=== PATIENT | male | born 1940 | race Caucasian/White ===

== ENCOUNTER 2017-08-20 22:38 | Inpatient (IN) ==
[2017-08-21] MEDS ORDERED: Naloxone 0.4 MG/ML INJ IVP PRN ×3 (04:28→04:42)
[2017-08-21] MEDS ORDERED: Sod Borate/Boric acid/NaCl 118 ML IRRIG.SOLN OP ONE ×2 (04:48→20:53)
--- NOTE | 2017-08-21 04:58 | Internal Med History&Physical ---
Date of Encounter: 08/21/17 Time of Encounter: 03:00 Internal Medicine - H&P: HPI Chief complaint: Weakness, los of appetite, history of AML Admitted From: Hospital to Hospital Transfer Plans for Post Hospital Care: Home History of present illness: Mr. Saxena is a 76 year old male Patient has history of AML, and has been on chemotherapy for the last several weeks. He is to start another round of chemotherapy on 08/22/2017. He states that for the past few days he has had low energy, no appetite, has not been eating, or drinking. Prior to this he had not had issues with appetite. He saw his oncologist recently and he was started on Marinol to help with his appetite however it has not had an effect yet. He was admitted for failure to thrive. Patient also states that 2 nights ago he accidentally scratched his right eye. In the ER prior to being transferred to [facility], this was evaluated and an ointment was applied. It is causing him some pain. Patient also had a stroke this past February, and he was found to have atrial fibrillation. He is currently not taking anything for his atrial fibrillation. Past Med Surg Social Fam HX - Past Medical History Medical history: asthma, COPD, hyperlipidemia, hypertension, myocardial infarction, RA Additional medical history: Irreg Heart-Beat. Emphysema. Kidney Failure. Cataracts. Anemia Psychiatric history: anxiety, depression - Past Surgical History Surgical History: appendectomy, coronary bypass (CABG) Additional surgical history: PLIF L4-L5 - Social History Smoking Status: Former smoker Smokeless Tobacco Status: No Alcohol use: none Drug use: none Internal Medicine - H&P: Meds Escitalopram [Lexapro] 20 mg PO HS 06/27/15 [History] Finasteride [Proscar] 5 mg PO DAILY 06/27/15 [History] Omeprazole [PriLOSEC] 40 mg PO DAILY 06/27/15 [History] amLODIPine [Norvasc] 5 mg PO DAILY 09/24/16 [History] Ipratropium/Albuterol Neb [Duoneb] 3 ml IH BID PRN 10/19/16 [History] Allopurinol [Zyloprim 300 MG] 300 mg PO DAILY 04/08/17 [History] Atorvastatin Calcium [Lipitor] 80 mg PO DAILY 04/08/17 [History] Oxycodone HCl [Oxycontin] 10 mg PO Q4H PRN 04/08/17 [History] Terazosin [Hytrin] 1 mg PO HS 04/08/17 [History] Prochlorperazine Maleate [Compazine] 10 mg PO Q8HR PRN #60 tablet 04/25/17 [Rx] Magic Mouthwash [Magic Mouthwash BLM] 10 ml PO QID PRN #240 ml 06/07/17 [Rx] Docusate Sodium [Stool Softener] 100 mg PO DAILY #30 capsule 06/20/17 [Rx] Sennosides [Senokot] 1 tab PO DAILY PRN #30 tablet 06/20/17 [Rx] Polyethylene Glycol 3350 [MiraLAX] 17 gm PO DAILY #3 powd.pack 06/28/17 [Rx] Citalopram Hydrobromide [Celexa] 20 mg PO DAILY #30 tab 07/18/17 [Rx] Megestrol Acetate [Megace] 800 mg PO DAILY #400 udc 07/18/17 [Rx] OxyCODONE Immed Rel [Roxicodone 5 MG] 5 mg PO BID PRN 30 Days #60 tablet [Rx] Zolpidem [Ambien] 10 mg PO HS 30 Days #30 tablet 08/03/17 [Rx] Dronabinol [Marinol] 2.5 mg PO DAILY 30 Days #30 capsule 08/11/17 [Rx] Doxycycline 100 mg PO BID #30 capsule 08/16/17 [Rx] 3 Allergy/AdvReac Type Severity Reaction Status Date / Time No Known Allergies Allergy Verified 08/11/17 09:29 All Systems PM: A 10-system review of systems was performed and is negative for pertinent findings except as documented above in the HPI. - EENT Eyes: irritation, pain - Constitutional Vitals: Temp Pulse Resp BP Pulse Ox 98.5 F 72 18 121/67 99 08/21/17 04:30 08/21/17 04:30 08/21/17 04:30 08/21/17 04:30 08/21/17 04:30 General appearance: Present: A&O X 3, no acute distress, underweight, answers questions appropriately - Head Head exam: Present: atraumatic - Eye Eye exam: Present: EOMI (Right eyes sclera is red) - ENT ENT exam: Present: normal external ear exam - Respiratory Respiratory exam: Present: CTAB. Absent: accessory muscle use, chest wall tenderness, wheezes - Cardiovascular Cardiovascular exam: Present: irregular rhythm. Absent: tachycardia - GI/Abdominal GI/Abdominal exam: Present: normal bowel sounds, soft. Absent: tenderness - Extremities Exam Extremities exam: Present: warm, radial pulses palpable and symmetrical. Absent : cyanotic - Neurological Exam Neurological exam: Present: oriented X3, no focal deficits. Absent: facial droop, speech deficit - Psychiatric Psychiatric exam: Present: normal affect - Skin Skin exam: Present: diaphoretic, intact, normal color. Absent: rash - Assessment and plan (1) Acute myeloid leukemia Current Visit: No Status: Acute Assessment and plan: Chronic condition, patient has been receiving chemotherapy for this for some time now. Is seeing an oncologist at this time. He is to start another round of chemotherapy on August 22. This condition is likely that cause of his other presenting problems including weakness and loss of appetite and failure to thrive. Continue with current plan as per oncology Oncology has been notified of the patient being in the hospital. Qualifiers: Qualified Code(s): C92.00 - Acute myeloblastic leukemia, not having achieved remission (2) Abrasion of right eye Current Visit: Yes Status: Acute Assessment and plan: Patient accidentally scratched his right eye one night ago. Is causing him some discomfort at this time. Give eye irrigation solution. Consider ophthalmology consult if not improving Consider antibiotics if not improving. Qualifiers: Qualified Code(s): S05.8X1A - Other injuries of right eye and orbit, initial encounter (3) Failure to thrive in adult Current Visit: Yes Status: Acute Assessment and plan: Patient has history of AML, and for the past week has not been eating or drinking very much. He has had low energy as well. Physical therapy consultation to help patient build strength and give him exercises for him to try. Occupational therapy consultation to help patient with movement and transfers. Nutrition consult to help patient get on a sufficient diet, which will help build his strength. (4) Leucopenia Current Visit: No Status: Chronic Assessment and plan: Likely secondary to AML, treating as above. Qualifiers: Leukopenia type: neutropenia Qualified Code(s): D70.1 - Agranulocytosis secondary to cancer chemotherapy; T45.1X5A - Adverse effect of antineoplastic and immunosuppressive drugs, initial encounter (5) Anemia Current Visit: Yes Status: Chronic Assessment and plan: Likely secondary to his AML and chemotherapy treatments. Patient's iron levels are within normal limits, and his B12 levels are also not below. Continue to treat AML as above. Monitor with repeat laboratory work. Qualifiers: Anemia type: other cause Other causes of anemia: antineoplastic chemotherapy Qualified Code(s): D64.81 - Anemia due to antineoplastic chemotherapy; T45.1X5A - Adverse effect of antineoplastic and immunosuppressive drugs, initial encounter (6) Urinary tract infection Current Visit: Yes Status: Acute Assessment and plan: Suspected due to patient's urine sample given. Has elevated leukocytic esterase , but also many epithelial cells which could indicate contamination. No bacteria was seen either. Cultures were indicated. Patient denied pain with urination. Patient's vitals otherwise normal do not suspect infection at this time. Follow-up urine cultures Consider treating with ceftriaxone 1 g if indicated. Qualifiers: Qualified Code(s): N39.0 - Urinary tract infection, site not specified (7) Lethargy Current Visit: Yes Status: Acute Assessment and plan: Secondary to AML, low hydration and nutrition status. PT,OT consult Nutrition consult. - Time Spent With Patient Total time spent is greater than 50% in coordination of care (as documented) at patient's floor/unit and/or counseling patient: Greater than 35 minutes
[2017-08-21] MEDS ORDERED: 0.9 % Sodium Chloride 1,000 ML IVC ONE (05:19)
[2017-08-21] MEDS: *HR* Heparin 5,000 UNIT/ML VIAL SQ SCH ×2 (05:45→19:28)
--- NOTE | 2017-08-21 08:22 | Oncology Inp Consult Note ---
Date of Encounter: 08/21/17 Time of Encounter: 09:00 Assessment and Plan (1) Acute myeloid leukemia Status: Acute Assessment and plan: Diagnosed with a bone marrow biopsy at [facility], patient did not want to participate in any clinical trials, he started decitabine treatment since April 2017, initially tolerated it well. He his treatment has been delayed due to increasing weakness and poor quality of life, requiring periodic transfusions. Patient has not agreed for hospice but wants to feel better and able to eat well. Will continue supportive transfusions. He currently does not need any PRBC or platelet transfusion his platelets are within normal limits. Restart up pain medications as patient was taking outside at home, oxycodone 5 mg as needed, I have started his Megace as patient developed drowsiness with Marinol. Panculture if patient develops a fever, he was taking outpatient doxycycline prophylaxis. Currently denies any signs and symptoms of fever. Physical therapy, occupational therapy. Nutrition evaluation. Attempted to communicate plan with his , but she was unable to be reached at home/lyn. Plan d/w patient bedside Qualifiers: Leukemia Active/Remission status: without remission Qualified Code(s): C92.00 - Acute myeloblastic leukemia, not having achieved remission - Data of Consult Requesting Physician: Kiko Gutierrez MD Primary Care Provider: Jose Ocampo CNP - Consult Narrative Reason for consult: AML History of present illness: Mr. Saxena is a 76-year-old male with medical history significant for hypertension, A fib, CAD, rt hip arthroplasty 03/24, chronic kidney disease, hypo -PD colonoscopy back in 2014 for iron def anemia--Rx in clinic with mild leukopenia, had a fall and Rx at [facility] for rt clavicle fracture and rt hip hemiarthroplasty--03/24. LAbs showed abnormalities including presence of blasts-- peripheral flow consistent with AML. Echo with EF-55-60% also shows moderate dilatation of the ascending aorta.This measures 4.3cm . A BM bx at [facility]--Acute myeloid leukemia (30-40% blasts) involving a hypercellular marrow (70-80%), preserved trilineage hematopoiesis with erythroid hyperplasia, megakaryocytic hyperplasia, and mild trilineage dysplasia, see comment. 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 PT preferred to take Rx locally due to distance from [facility]> Started decitabine cycle 1 in April 2017 tolerated well. He had received monthly course of decitabine, developed weakness, with occasional fall, poor appetite had tried Megace recently Marinol, due to poor oral intake and failure to thrive he was transferred from [facility]. His last blood transfusion was in the beginning of the month. His platelet counts have stabilized. He is still leukopenic does not report any fever or infection symptoms. He denies any diarrhea or cough with expectoration. He has generally pain from arthritis, Ac myeloid leukemia which has been under control with pain medications. Past Med Surg Social Fam HX - Past Medical History Medical history: asthma, COPD, hyperlipidemia, hypertension, myocardial infarction, RA Additional medical history: Irreg Heart-Beat. Emphysema. Kidney Failure. Cataracts. Anemia Psychiatric history: anxiety, depression - Past Surgical History Surgical History: appendectomy, coronary bypass (CABG) Additional surgical history: PLIF L4-L5 - Social History Smoking Status: Former smoker Smokeless Tobacco Status: No Alcohol use: none Drug use: none Medications and Allergies Escitalopram [Lexapro] 20 mg PO HS 06/27/15 [History] Finasteride [Proscar] 5 mg PO DAILY 06/27/15 [History] Omeprazole [PriLOSEC] 40 mg PO DAILY 06/27/15 [History] Allopurinol [Zyloprim 300 MG] 300 mg PO DAILY 04/08/17 [History] Atorvastatin Calcium [Lipitor] 80 mg PO DAILY 04/08/17 [History] Oxycodone HCl [Oxycontin] 10 mg PO Q4H PRN 04/08/17 [History] Terazosin [Hytrin] 1 mg PO HS 04/08/17 [History] Prochlorperazine Maleate [Compazine] 10 mg PO Q8HR PRN #60 tablet 04/25/17 [Rx] Magic Mouthwash [Magic Mouthwash BLM] 10 ml PO QID PRN #240 ml 06/07/17 [Rx] Docusate Sodium [Stool Softener] 100 mg PO DAILY #30 capsule 06/20/17 [Rx] Sennosides [Senokot] 1 tab PO DAILY PRN #30 tablet 06/20/17 [Rx] Polyethylene Glycol 3350 [MiraLAX] 17 gm PO DAILY #3 powd.pack 06/28/17 [Rx] Citalopram Hydrobromide [Celexa] 20 mg PO DAILY #30 tab 07/18/17 [Rx] Megestrol Acetate [Megace] 800 mg PO DAILY #400 udc 07/18/17 [Rx] OxyCODONE Immed Rel [Roxicodone 5 MG] 5 mg PO BID PRN 30 Days #60 tablet [Rx] Zolpidem [Ambien] 10 mg PO HS 30 Days #30 tablet 08/03/17 [Rx] Dronabinol [Marinol] 2.5 mg PO DAILY 30 Days #30 capsule 08/11/17 [Rx] Doxycycline 100 mg PO BID #30 capsule 08/16/17 [Rx] 3 Allergy/AdvReac Type Severity Reaction Status Date / Time No Known Allergies Allergy Verified 08/11/17 09:29 Review of systems: as in HPI Oncology - Exam - Constitutional Vitals: Temp Pulse Resp BP Pulse Ox 98.6 F 97 18 127/76 97 08/21/17 07:22 08/21/17 07:22 08/21/17 07:22 08/21/17 07:22 08/21/17 07:22 General appearance: no acute distress - Head Head exam: Present: atraumatic, normal inspection - Eye Eye exam: Present: sclera anicteric - ENT ENT exam: Present: mucous membranes dry, mucous membranes moist - Neck Neck exam: Present: full ROM - Respiratory Respiratory exam: Present: CTAB - Cardiovascular Cardiovascular exam: Present: irregular rhythm, +S1, +S2 - GI/Abdominal GI/Abdominal exam: Present: normal bowel sounds, soft - Extremities Exam Extremities exam: Present: normal inspection - Neurological Exam Neurological exam: Present: alert, CN II-XII intact, oriented X3 - Psychiatric Psychiatric exam: Present: normal affect Consult Discharge Plan - Plan Referrals: Jose Ocampo CNP [Primary Care Provider] -
[2017-08-21 08:41] LABS: Red Cell Distribution Width 20.2 % (11.5-14.5)
[2017-08-21 08:42] LABS: Hematocrit 24.5 % (37.5-50.1); Hemoglobin 7.9 g/dL (12.9-16.9); Mean Corpuscular HGB Conc 32.2 g/dL (31.6-35.5); Mean Corpuscular Hemoglobin 30.7 pg (28.0-33.3); Mean Corpuscular Volume 95.3 fL (83.0-100.0); Mean Platelet Volume 10.9 fL (9.4-12.4); Platelet Count 316 K/mcL (140-400); Red Blood Count 2.57 M/mcL (4.19-5.50)
[2017-08-21 08:57] LABS: Alanine Aminotransferase 8 Units/L (7-52); Albumin 3.2 g/dL (3.5-5.7); Albumin/Globulin Ratio 1.1 (1.1-2.2); Alkaline Phosphatase 70 Units/L (34-104); Aspartate Amino Transferase 9 Units/L (13-39); BUN/Creatinine Ratio 14 (6-26); Bilirubin,Total 0.5 mg/dL (0.3-1.0); Blood Urea Nitrogen 16 mg/dL (8-23); Calcium 8.6 mg/dL (8.6-10.3); Carbon Dioxide 18 mEq/L (23-29); Chloride 112 mEq/L (98-107); Globulin 2.9 g/dL (2.4-3.5); Glucose 106 mg/dL (70-105); Magnesium 1.8 mg/dL (1.6-2.6); Osmolality,Calculated 288 (280-300); Phosphorous 3.9 mg/dL (2.7-4.5); Potassium 3.4 mEq/L (3.5-5.1); Sodium 138 mEq/L (136-145); Total Protein 6.1 g/dL (6.4-8.9); eGFR For African Americans > 60 (> 60); eGFR For Non-African Americans > 60 (> 60)
[2017-08-21] MEDS: Megestrol Acetate 400 MG/10 ML UDC PO SCH ×2 (09:46→15:01)
[2017-08-21] MEDS ORDERED: Magic Mouthwash 10 ML UD Cup PO PRN (14:09)
[2017-08-21] MEDS ORDERED: Ipratropium/Albuterol Neb 3 ML IH PRN (14:09)
--- NOTE | 2017-08-21 14:18 | Internal Med Progress Note ---
Date of Encounter: 08/21/17 Time of Encounter: 13:16 - Assessment and plan (1) Leucopenia Current Visit: No Status: Chronic Qualifiers: Leukopenia type: neutropenia Qualified Code(s): D70.1 - Agranulocytosis secondary to cancer chemotherapy; T45.1X5A - Adverse effect of antineoplastic and immunosuppressive drugs, initial encounter (2) Hypokalemia Current Visit: Yes Status: Acute (3) Failure to thrive in adult Current Visit: No Status: Acute (4) Acute myeloid leukemia Current Visit: No Status: Acute Qualifiers: Leukemia Active/Remission status: without remission Qualified Code(s): C92.00 - Acute myeloblastic leukemia, not having achieved remission - Time Spent With Patient Plan Counseling patient about nutrition, add appetite stimulant, discontinue ambien add remeron to help him an appetite stimulant as well as to help him to sleep. Neutropenic precaution. Appreciate oncology input. Vital signs every 4 hours. Replaced potassium check magnesium and phosphorus. Resume home medication. Total time spent is greater than 50% in coordination of care (as documented) at patient's floor/unit and/or counseling patient: 25 - 35 minutes - Subjective Interval history: Patient complaining of generalized weakness tiredness, patient denies any fever or chills, patient denies any dysuria or hematuria, denies any change in his bowel movement, denies any sore throat. Patient complaining of decreased appetite he did not eat for the last 3 days - Constitutional Vitals: Temp Pulse Resp BP Pulse Ox 98.6 F 88 17 168/69 99 08/21/17 11:38 08/21/17 11:38 08/21/17 11:38 08/21/17 11:38 08/21/17 11:38 General appearance: Present: A&O X 3, no acute distress, underweight, answers questions appropriately - Head Head exam: Present: atraumatic, normocephalic - Neck Neck exam general surgery: Present: supple, trachea midline. Absent: lymphadenopathy - Cardiovascular Cardiovascular exam: Present: RRR, +S1, +S2. Absent: diastolic murmur, gallop, rubs, systolic murmur - GI/Abdominal GI/Abdominal exam: Present: normal bowel sounds, soft, no peritoneal signs. Absent: distended, tenderness - Extremities Exam Extremities exam: Present: warm, radial pulses palpable and symmetrical. Absent : calf tenderness, cyanotic, pedal edema - Neurological Exam Neurological exam: Present: CN II-XII intact, oriented X3, no focal deficits. Absent: pronater drift, facial droop, speech deficit - Skin Skin exam: Present: dry, intact Internal Medicine: Result - Labs CBC & Chem 7: 08/21/17 08:13 08/21/17 08:13 Labs: Short CBC 08/21/17 Range/Units 08:13 WBC 0.6 L* (4.3-11.1) K/mcL Hgb 7.9 L (12.9-16.9) g/dL Hct 24.5 L (37.5-50.1) % Plt Count 316 (140-400) K/mcL BMP 08/21/17 08:13 Sodium 138 Potassium 3.4 L Chloride 112 H Carbon Dioxide 18 L BUN 16 Creatinine 1.14 Glucose 106 H Calcium 8.6 Liver Function 08/21/17 Range/Units 08:13 Total Bilirubin 0.5 (0.3-1.0) mg/dL AST 9 L (13-39) Units/L ALT 8 (7-52) Units/L Alkaline Phosphatase 70 (34-104) Units/L Albumin 3.2 L (3.5-5.7) g/dL Consult Discharge Plan - Plan Referrals: Jose Ocampo CNP [Primary Care Provider] -
[2017-08-21] MEDS ORDERED: Thiamine (B-1) 100 MG in D5% in Water 50 ML IVPB ONE (14:27)
[2017-08-21] MEDS: Sennosides 8.6 MG TABLET PO PRN (15:38)
[2017-08-21] MEDS: amLODIPine 5 MG TABLET PO SCH (15:38)
[2017-08-21] MEDS: *HR* OxyCODONE Immed Rel 5 MG TABLET PO PRN (15:38)
[2017-08-21] MEDS: Thiamine (B-1) 100 MG TABLET PO SCH (15:38)
[2017-08-21] MEDS: Finasteride 5 MG TABLET PO SCH (15:39)
[2017-08-21] MEDS: Levofloxacin 500 MG/100 ML 500 MG/100 ML BAG IVPB SCH (17:00)
[2017-08-21] MEDS ORDERED: Mirtazapine 15 MG TABLET PO SCH (21:00)
[2017-08-21] MEDS: Melatonin 3 MG TABLET PO PRN (21:32)
[2017-08-22] MEDS: *HR* Heparin 5,000 UNIT/ML VIAL SQ SCH ×2 (06:10→17:02)
[2017-08-22 07:30] LABS: Mean Platelet Volume 10.8 fL (9.4-12.4)
[2017-08-22 07:32] LABS: Eosinophils % 4.4 %; Hematocrit 23.7 % (37.5-50.1); Hemoglobin 7.8 g/dL (12.9-16.9); Immature Granulocytes % 2.9 % (0-4); Lymphocytes # 0.5 K/mcL (0.6-4.6); Lymphocytes % 73.5 %; Mean Corpuscular HGB Conc 32.9 g/dL (31.6-35.5); Mean Corpuscular Hemoglobin 31.2 pg (28.0-33.3); Mean Corpuscular Volume 94.8 fL (83.0-100.0); Monocytes % 2.9 %; Neutrophils # 0.1 K/mcL (1.6-8.9); Nucleated Red Blood Cells 4.4 /100 WBC (0); Platelet Count 339 K/mcL (140-400); Red Cell Distribution Width 20.4 % (11.5-14.5); Segmented Neutrophils % 16.3 %
[2017-08-22 07:53] LABS: % Iron Saturation 21 % (20-55); BUN/Creatinine Ratio 14 (6-26); Blood Urea Nitrogen 15 mg/dL (8-23); Calcium 8.9 mg/dL (8.6-10.3); Carbon Dioxide 19 mEq/L (23-29); Chloride 111 mEq/L (98-107); Glucose 96 mg/dL (70-105); Iron 35 mcg/dL (65-175); Magnesium 1.8 mg/dL (1.6-2.6); Osmolality,Calculated 289 (280-300); Phosphorous 3.8 mg/dL (2.7-4.5); Potassium 3.2 mEq/L (3.5-5.1); Sodium 139 mEq/L (136-145); Transferrin 118 mg/dL (203-362); eGFR For African Americans > 60 (> 60); eGFR For Non-African Americans > 60 (> 60)
[2017-08-22] MEDS: Finasteride 5 MG TABLET PO SCH (08:00)
[2017-08-22] MEDS: Megestrol Acetate 400 MG/10 ML UDC PO SCH ×2 (08:01→08:05)
[2017-08-22] MEDS: amLODIPine 5 MG TABLET PO SCH (08:01)
[2017-08-22] MEDS: Thiamine (B-1) 100 MG TABLET PO SCH (08:01)
[2017-08-22 08:12] LABS: Ferritin 826 ng/mL (20-250)
[2017-08-22 08:30] LABS: Anisocytosis 1+ (Not Present); Platelet Estimate Normal (Normal)
[2017-08-22] MEDS ORDERED: D5% in 0.45% NACL 1,000 ML IVC SCH (11:45)
[2017-08-22] MEDS ORDERED: Sennosides/Docusate Sodium TABLET PO ONE (11:47)
--- NOTE | 2017-08-22 11:59 | Internal Med Progress Note ---
Date of Encounter: 08/22/17 Time of Encounter: 11:55 - Assessment and plan (1) Leucopenia Current Visit: No Status: Chronic Qualifiers: Leukopenia type: neutropenia Qualified Code(s): D70.1 - Agranulocytosis secondary to cancer chemotherapy; T45.1X5A - Adverse effect of antineoplastic and immunosuppressive drugs, initial encounter (2) Hypokalemia Current Visit: Yes Status: Acute (3) Failure to thrive in adult Current Visit: No Status: Acute (4) Acute myeloid leukemia Current Visit: No Status: Acute Qualifiers: Leukemia Active/Remission status: without remission Qualified Code(s): C92.00 - Acute myeloblastic leukemia, not having achieved remission (5) Major depression Current Visit: Yes Status: Acute Qualifiers: Major depression recurrence: unspecified whether recurrent Active/ Remission status: currently active Major depression episode severity: moderate Qualified Code(s): F32.1 - Major depressive disorder, single episode , moderate (6) Lethargy Current Visit: No Status: Acute - Time Spent With Patient Plan Patient is clinically dry, will start patient on IV fluid, potassium replacement , phosphorus replacement, with his leukopenia continue neutropenic precaution continue prophylaxis with Levaquin. Borderline low iron and iron saturation may benefit from iron infusion, add BuSpar to help with supplementation of SSRI with his depression, change schedule of mirtazapine to 6 PM, close monitoring of H&H and his need to be neutrophils, patient is hospice stay more than 2 Midnight Total time spent is greater than 50% in coordination of care (as documented) at patient's floor/unit and/or counseling patient: 25 - 35 minutes - Subjective Interval history: Decrease oral intake of fluid, patient is so sleepy, based on family he was crying lately, he is feeling so depressed. He eats better today, no fever or chills overnight - Constitutional Vitals: Temp Pulse Resp BP Pulse Ox 99.2 F 95 17 108/64 98 08/22/17 10:58 08/22/17 10:58 08/22/17 10:58 08/22/17 10:58 08/22/17 10:58 General appearance: Present: cachectic, no acute distress, underweight, answers questions appropriately - Head Head exam: Present: atraumatic, normocephalic - Respiratory Respiratory exam: Present: CTAB. Absent: accessory muscle use, rales, rhonchi, wheezes - Cardiovascular Cardiovascular exam: Present: RRR, +S1, +S2. Absent: diastolic murmur, gallop, rubs, systolic murmur - GI/Abdominal GI/Abdominal exam: Present: normal bowel sounds, soft, no peritoneal signs. Absent: distended, tenderness - Extremities Exam Extremities exam: Present: warm, radial pulses palpable and symmetrical. Absent : calf tenderness, cyanotic, pedal edema Internal Medicine: Result - Labs CBC & Chem 7: 08/22/17 07:16 08/22/17 07:16 Labs: Short CBC 08/22/17 Range/Units 07:16 WBC 0.7 L* (4.3-11.1) K/mcL Hgb 7.8 L (12.9-16.9) g/dL Hct 23.7 L (37.5-50.1) % Plt Count 339 (140-400) K/mcL Neutrophils # 0.1 L (1.6-8.9) K/mcL BMP 08/22/17 07:16 Sodium 139 Potassium 3.2 L Chloride 111 H Carbon Dioxide 19 L BUN 15 Creatinine 1.04 Glucose 96 Calcium 8.9 Consult Discharge Plan - Plan Referrals: Jose Ocampo, ENVIRONMENTAL ADVISOR [Primary Care Provider] -
[2017-08-22] MEDS: Sennosides 8.6 MG TABLET PO PRN (14:26)
[2017-08-22] MEDS: D5% in 0.45% NACL w KCl 20 MEQ/1,000 ML MLS IVC SCH (14:26)
--- NOTE | 2017-08-22 14:59 | Oncology Inp Progress Note ---
Date of Encounter: 08/22/17 Time of Encounter: 14:00 (1) Acute myeloid leukemia Current Visit: No Status: Acute Assessment and plan: Diagnosed with a bone marrow biopsy at [facility], patient did not want to participate in any clinical trials, he started decitabine treatment since April 2017, initially tolerated it well. He has had treatment delays secondary to increasing weakness and poor quality of life, requiring periodic transfusions. Continue supportive management, PT/OT evals, nutrition eval. He currently does not need any PRBC or platelet transfusion his platelets are within normal limits. Severe neutropenia, he has been afebrile since admission. Reordered UA with culture. Panculture if patient develops a fever, he was taking outpatient doxycycline prophylaxis. He is drowsy but responds to voice, per he ate most of his lunch earlier. Stopped marinol, per Dr. Gómez note this has previously made his drowsy. May continue megace. Discussed plan with patients at bedside today. She is very realistic and understands treatment is of palliative intent. May need to consider palliative consult in future dependent upon his response to treatment, patients/family and improvement in functional status. At this time, continue with supportive management Qualifiers: Leukemia Active/Remission status: without remission Qualified Code(s): C92.00 - Acute myeloblastic leukemia, not having achieved remission Oncology: Subj Interval history: Mr. Saxena is resting comfortably, he denies pain. He is drowsy but responds to voice. He denies nausea, vomiting or diarrhea. His is at bedside. In speaking with patients , she states she has been concerned over his decline over the past few days, has had little intake prior to admission but she states he ate most of his lunch. - Constitutional Vitals: Vital Signs Temp Pulse Resp BP Pulse Ox 08/22/17 10:58 99.2 F 95 17 108/64 98 08/22/17 07:25 98.6 F 67 16 124/63 98 08/22/17 04:00 98.8 F 82 16 104/54 98 08/21/17 23:14 98.0 F 102 18 137/76 98 08/21/17 19:53 98.3 F 102 17 134/78 98 08/21/17 16:16 98.3 F 94 18 157/92 98 Intake and Output 08/21/17 08/22/17 08/22/17 23:59 07:59 15:59 Intake Total 126 / 126 0 / 0 600 / 600 Balance 126 / 126 0 / 0 600 / 600 Intake: IV Fluids 51 Vitamin B-1 100 MG In Dextrose 51 5% 50 ML @ 50 mls/hr IVPB ONCE ONE Rx#:[id number] Oral 65 / 65 0 / 0 600 / 600 Other 10 Other: Meal Dinner Lunch Percent of Meal Consumed 50% 70% # Voids 1 3 Weight 62.5 kg Patient Weight 08/22/17 23:59 Weight 62.5 kg General appearance: cooperative, no acute distress, thin, no febrile Exam: chronically ill appearing - Head Head exam: Present: atraumatic - ENT ENT exam: Present: mucous membranes moist - Respiratory Respiratory exam: Present: decreased breath sounds, CTAB. Absent: respiratory distress - Cardiovascular Cardiovascular exam: Present: RRR, +S1, +S2 - GI/Abdominal GI/Abdominal exam: Present: normal bowel sounds, soft. Absent: tenderness - Extremities Exam Extremities exam: Absent: calf tenderness - Neurological Exam Neurological exam: Present: alert, oriented X3, no focal deficits, strengths equal and symetr throughout Additional comments: Drowsy but responds to voice, follows commands - Psychiatric Psychiatric exam: Present: depressed, flat affect - Skin Skin exam: Present: dry, intact, normal color, warm Oncology: Obj Data - Labs CBC & Chem 7: 08/23/17 06:27 08/23/17 06:27 Labs: Laboratory Results - last 24 hr 08/22/17 08/22/17 08/22/17 07:16 07:16 07:16 WBC 0.7 L* RBC 2.50 L Hgb 7.8 L Hct 23.7 L MCV 94.8 MCH 31.2 MCHC 32.9 RDW 20.4 H Plt Count 339 MPV 10.8 Immature Gran % 2.9 Seg Neutrophils % 16.3 Lymphocytes % 73.5 Monocytes % 2.9 Eosinophils % 4.4 Basophils % 0.0 Neutrophils # 0.1 L Lymphocytes # 0.5 L Monocytes # 0.0 Eosinophils # 0.0 Basophils # 0.0 Nucleated RBCs/100 WBC 4.4 H Platelet Estimate Normal Anisocytosis 1+ A Sodium 139 Potassium 3.2 L Chloride 111 H Carbon Dioxide 19 L BUN 15 Creatinine 1.04 Est GFR ( Amer) > 60 Est GFR (Non-Af Amer) > 60 BUN/Creatinine Ratio 14 Glucose 96 Calculated Osmolality 289 Calcium 8.9 Phosphorus 3.8 Magnesium 1.8 Iron % Saturation Transferrin Ferritin Vitamin B12 696 08/22/17 07:16 WBC RBC Hgb Hct MCV MCH MCHC RDW Plt Count MPV Immature Gran % Seg Neutrophils % Lymphocytes % Monocytes % Eosinophils % Basophils % Neutrophils # Lymphocytes # Monocytes # Eosinophils # Basophils # Nucleated RBCs/100 WBC Platelet Estimate Anisocytosis Sodium Potassium Chloride Carbon Dioxide BUN Creatinine Est GFR ( Amer) Est GFR (Non-Af Amer) BUN/Creatinine Ratio Glucose Calculated Osmolality Calcium Phosphorus Magnesium Iron 35 L % Saturation 21 Transferrin 118 L Ferritin 826 H Vitamin B12 Consult Discharge Plan - Plan Referrals: Jose Ocampo CNP [Primary Care Provider] -
[2017-08-22] MEDS: Levofloxacin 500 MG/100 ML 500 MG/100 ML BAG IVPB SCH (16:15)
[2017-08-22] MEDS: Mirtazapine 15 MG TABLET PO SCH (17:02)
[2017-08-23] MEDS: D5% in 0.45% NACL w KCl 20 MEQ/1,000 ML MLS IVC SCH ×3 (01:45→21:59)
[2017-08-23 04:11] LABS: Bilirubin,Urine Negative (Negative); Blood,Urine Negative (Negative); Clarity,Urine Clear (Clear); Color,Urine Yellow (Yellow); Glucose,Urine (UA) Normal (Normal); Ketones,Urine Negative (Negative); Leukocyte Esterase,Urine Negative (Negative); Nitrite,Urine Negative (Negative); PH,Urine 6.5 pH Units (5.0-8.0); Protein,Urine 100 mg/dL (Neg-Trace); Specific Gravity,Urine 1.016 (1.010-1.025); Urobilinogen,Urine Normal (Normal)
[2017-08-23 04:13] LABS: Bacteria,Urine None Seen per hpf (None-Few); Hyaline Casts,Urine None Seen per lpf (None-Few); RBC,Urine 0-3 per hpf (0-3); Squamous Epithelial Cell,Urine Few per lpf (None-Few); WBC,Urine 0-3 per hpf (0-3)
[2017-08-23] MEDS: *HR* Heparin 5,000 UNIT/ML VIAL SQ SCH ×2 (06:00→17:05)
[2017-08-23 07:23] LABS: Lymphocytes # 0.4 K/mcL (0.6-4.6); Lymphocytes % 72.4 %; Monocytes % 3.4 %
[2017-08-23 07:24] LABS: Hematocrit 23.5 % (37.5-50.1); Hemoglobin 7.7 g/dL (12.9-16.9); Mean Corpuscular HGB Conc 32.8 g/dL (31.6-35.5); Mean Corpuscular Hemoglobin 31.2 pg (28.0-33.3); Mean Corpuscular Volume 95.1 fL (83.0-100.0); Platelet Count 301 K/mcL (140-400); Red Blood Count 2.47 M/mcL (4.19-5.50); Segmented Neutrophils % 24.2 %
[2017-08-23 07:37] LABS: BUN/Creatinine Ratio 14 (6-26); Blood Urea Nitrogen 15 mg/dL (8-23); Calcium 8.4 mg/dL (8.6-10.3); Carbon Dioxide 15 mEq/L (23-29); Chloride 113 mEq/L (98-107); Glucose 114 mg/dL (70-105); Magnesium 1.7 mg/dL (1.6-2.6); Osmolality,Calculated 286 (280-300); Potassium 3.3 mEq/L (3.5-5.1); Sodium 137 mEq/L (136-145); eGFR For African Americans > 60 (> 60); eGFR For Non-African Americans > 60 (> 60)
[2017-08-23 07:53] LABS: Neutrophils # 0.2 K/mcL (1.6-8.9)
[2017-08-23 07:57] LABS: Anisocytosis 2+ (Not Present); Platelet Estimate Normal (Normal)
[2017-08-23 07:59] LABS: Helmet Cells Present (Not Present); Poikilocytosis 2+ (Not Present)
[2017-08-23] MEDS: Finasteride 5 MG TABLET PO SCH (08:41)
[2017-08-23] MEDS: Thiamine (B-1) 100 MG TABLET PO SCH (08:41)
[2017-08-23] MEDS: amLODIPine 5 MG TABLET PO SCH (08:41)
[2017-08-23] MEDS: Megestrol Acetate 400 MG/10 ML UDC PO SCH (08:42)
--- NOTE | 2017-08-23 14:32 | Oncology Inp Progress Note ---
<Hilda Esqueda L - Last Filed: 08/24/17 09:21> Date of Encounter: 08/23/17 Time of Encounter: 14:00 (1) Acute myeloid leukemia Current Visit: No Status: Acute Assessment and plan: Diagnosed with a bone marrow biopsy at [facility], patient did not want to participate in any clinical trials, he started decitabine treatment since April 2017, initially tolerated it well. He has had treatment delays secondary to increasing weakness and poor quality of life, requiring periodic transfusions. Continue supportive management, PT/OT evals, nutrition eval. He currently does not need any PRBC or platelet transfusion his platelets are within normal limits. Severe neutropenia, he has been afebrile since admission. TMAX 99.9 in past 24 hours Reordered UA with culture-negative for UTI Panculture if patient develops a fever, he was taking outpatient doxycycline prophylaxis-started levaquin in house for prophylaxis More alert today. Discussed goals of care with patient and at bedside today. We discussed that there is no indication that treatment is not palliatively managing his AML, his cytopenias are stable and not necessarily worsening. Bone marrow biopsy may give us more definitive answer. More importantly, we discussed quality of life and whether continued treatment is what he wishes for given how the treatments affect his QOL along with his recent decline in functional and nutritional status. At this time, patient wishes to think about options, but leaning towards continuing treatment. He may wish to consider options and discuss further with Dr Mares on outpatient basis. May consider lengthening time span in betwen cycles to Q6 weeks. Continue with supportive management at this time. Encouraged PT participation. Patients concerned about taking him home due to his physical decline, PT to evaluate further, SS consult if needed. Nursing staff to assist patient to ambulate as tolerated. Please refer to Dr. Crzu's attestation below. Qualifiers: Leukemia Active/Remission status: without remission Qualified Code(s): C92.00 - Acute myeloblastic leukemia, not having achieved remission Oncology: Subj Interval history: Mr. Saxena is resting in bed. He is much more alert today and able to participate in conversation. He denies pain, SOB, cough, fevers/chills, nausea, vomiting or diarrhea. His is at bedside. - Constitutional Vitals: Vital Signs Temp Pulse Resp BP Pulse Ox 08/23/17 10:50 98.2 F 73 18 105/59 97 08/23/17 07:55 99.3 F 72 18 124/67 98 08/23/17 03:39 99.3 F 84 15 128/75 99 08/22/17 23:46 99.6 F 90 15 140/77 98 08/22/17 19:06 99.9 F H 94 16 148/63 98 08/22/17 16:08 99.4 F 91 17 126/70 98 Intake and Output 08/22/17 08/23/17 08/23/17 23:59 07:59 15:59 Intake Total 120 / 120 1000 / 1000 1770 / 1770 Output Total 180 / 180 260 / 260 Balance -60 / -60 740 / 740 1770 / 1770 Intake: IV Fluids 1000 / 1000 1000 / 1000 KCl 20mEq IN D5%-0.45 NACL 20 1000 / 1000 1000 / 1000 meq In 1,000 ml @ 100 mls/hr IVC .Q10H [facility] Rx#:[id number] Oral 120 / 120 770 / 770 Output: Urine 180 / 180 260 / 260 Other: Meal Dinner Lunch Percent of Meal Consumed 50% 100% Stool Size Large Stool Consistency formed # Voids 1 # Urine Diapers 1 # Bowel Movements 2 1 Weight 61.961 kg General appearance: cooperative, no acute distress, thin, no febrile Exam: cachectic, chronically ill appearing - Head Head exam: Present: atraumatic - ENT ENT exam: Present: mucous membranes moist - Respiratory Respiratory exam: Present: wheezes. Absent: respiratory distress - Cardiovascular Cardiovascular exam: Present: RRR, +S1, +S2 - GI/Abdominal GI/Abdominal exam: Present: normal bowel sounds, soft. Absent: guarding, rebound, tenderness - Extremities Exam Extremities exam: Present: normal inspection. Absent: calf tenderness - Neurological Exam Neurological exam: Present: alert, oriented X3, no focal deficits, strengths equal and symetr throughout - Psychiatric Psychiatric exam: Present: normal affect, normal mood - Skin Skin exam: Present: dry, intact, normal color, warm Oncology: Obj Data - Labs CBC & Chem 7: 08/24/17 08:05 08/24/17 08:05 Consult Discharge Plan - Plan Referrals: Jose Ocampo CNP [Primary Care Provider] - <Nathaniel Cruz - Last Filed: 08/24/17 16:54> Date of Encounter: 08/24/17 - Constitutional Vitals: Vital Signs Temp Pulse Resp BP Pulse Ox 08/24/17 16:27 98.7 F 88 16 134/77 99 08/24/17 10:56 98.9 F 97 17 122/66 98 08/24/17 07:38 98.5 F 83 16 134/79 99 08/24/17 04:00 99.9 F H 88 16 129/73 98 08/23/17 23:29 99 F 103 16 150/73 99 08/23/17 18:57 98.6 F 100 16 123/81 99 Intake and Output 08/24/17 08/24/17 08/24/17 07:59 15:59 23:59 Intake Total 1000 / 1000 0 / 0 Output Total 200 / 200 200 / 200 Balance 800 / 800 -200 / -200 Intake: IV Fluids 1000 / 1000 KCl 20mEq IN D5%-0.45 NACL 20 1000 / 1000 meq In 1,000 ml @ 100 mls/hr IVC .Q10H [facility] Rx#:[id number] Oral 0 / 0 Output: Urine 200 / 200 200 / 200 Other: Meal Breakfast Percent of Meal Consumed 80% Stool Size Moderate Stool Consistency soft Stool Color Brown # Voids 1 # Bowel Movements 1 Oncology: Obj Data - Labs CBC & Chem 7: 08/24/17 08:05 08/24/17 08:05 Labs: Laboratory Results - last 24 hr 08/24/17 08/24/17 08/24/17 08:05 08:05 15:28 WBC 0.7 L* RBC 2.19 L Hgb 6.7 L Hct 21.1 L MCV 96.3 MCH 30.6 MCHC 31.8 RDW 21.9 H Plt Count 253 MPV 11.0 Immature Gran % 4.3 H Seg Neutrophils % 24.3 Lymphocytes % 68.6 Monocytes % 1.4 Eosinophils % 1.4 Basophils % 0.0 Neutrophils # 0.2 L Lymphocytes # 0.5 L Monocytes # 0.0 Eosinophils # 0.0 Basophils # 0.0 Platelet Estimate Normal Hypochromasia Present A Anisocytosis 2+ A Microcytosis Present A Macrocytosis Present A Sodium 137 Potassium 3.7 Chloride 116 H Carbon Dioxide 15 L BUN 14 Creatinine 0.96 Est GFR ( Amer) > 60 Est GFR (Non-Af Amer) > 60 BUN/Creatinine Ratio 15 Glucose 108 H Calculated Osmolality 285 Calcium 8.4 L Magnesium 1.6 Blood Type O POSITIVE Antibody Screen NEGATIVE Crossmatch See Detail - Impressions Impressions Chest X-Ray 08/24/17 16:07 IMPRESSION: No acute process. D/ / César Coley MD / César Coley MD Interpreting Provider: César Coley MD - Attending Attestation I examined this patient and my medical decision-making was reviewed with the Advanced Practice Nurse. I agree with the documented findings, disposition and treatment plan as described except to the extent set forth below. 1. Pancytopenia. Diagnosed with AML at [facility] a bone marrow biopsy Currently on Decitabine day one through 5 IV treatment since April 2017. No major change in pancytopenia He is having increased fatigue. Discussed with him about different options May reduce the frequency of treatment to every 6 weeks to minimize fatigue and will discuss this with Dr. Reddy No major evidence of neutropenic sepsis. His temperature has been normal other than mild increase to 99 Hemoglobin 6.7 and dropped from 9 drainage
[2017-08-23] MEDS ORDERED: Potassium Chloride Elixir 20 MEQ/15 ML UDC GTUBE SCH (15:00)
[2017-08-23] MEDS: Levofloxacin 500 MG/100 ML 500 MG/100 ML BAG IVPB SCH (15:47)
[2017-08-23] MEDS: Mirtazapine 15 MG TABLET PO SCH (17:04)
[2017-08-23] MEDS: Doxycycline 100 MG CAPSULE PO SCH (20:18)
--- NOTE | 2017-08-23 20:48 | Internal Med Progress Note ---
Date of Encounter: 08/23/17 Time of Encounter: 20:48 - Assessment and plan (1) Neutropenia Current Visit: Yes Status: Acute Assessment and plan: WBC count is 0.6. It is 0.2 for neutrophils.See notes from oncology. Qualifiers: Neutropenia type: other Qualified Code(s): D70.8 - Other neutropenia (2) Acute myeloid leukemia Current Visit: No Status: Acute Assessment and plan: See notes from oncology. Qualifiers: Leukemia Active/Remission status: without remission Qualified Code(s): C92.00 - Acute myeloblastic leukemia, not having achieved remission (3) Acute hypokalemia Current Visit: Yes Status: Acute Assessment and plan: We will give him supplemental potassium chloride by mouth. (4) HTN (hypertension) Current Visit: Yes Status: Acute Assessment and plan: Under control. Will continue amlodipine. Qualifiers: Hypertension type: essential hypertension Qualified Code(s): I10 - Essential (primary) hypertension - Time Spent With Patient Total time spent is greater than 50% in coordination of care (as documented) at patient's floor/unit and/or counseling patient: less than 15 minutes - Subjective Interval history: He is very weak. His appetite is poor. Denies chest pain. Denies difficulty breathing. He is on room oxygen. Denies abdominal pain, nausea or vomiting. He has normal urination. - Constitutional Vitals: Temp Pulse Resp BP Pulse Ox 98.6 F 100 16 123/81 99 08/23/17 18:57 08/23/17 18:57 08/23/17 18:57 08/23/17 18:57 08/23/17 18:57 General appearance: Present: cachectic, no acute distress, underweight, answers questions appropriately - Respiratory Respiratory exam: Present: CTAB. Absent: accessory muscle use, rales, rhonchi, wheezes - Cardiovascular Cardiovascular exam: Present: RRR, +S1, +S2. Absent: diastolic murmur, gallop, rubs, systolic murmur - GI/Abdominal GI/Abdominal exam: Present: normal bowel sounds, soft, no peritoneal signs. Absent: distended, tenderness Internal Medicine: Result - Labs CBC & Chem 7: 08/28/17 03:22 08/28/17 03:22 Labs: Short CBC 08/23/17 Range/Units 06:27 WBC 0.6 L* (4.3-11.1) K/mcL Hgb 7.7 L (12.9-16.9) g/dL Hct 23.5 L (37.5-50.1) % Plt Count 301 (140-400) K/mcL Neutrophils # 0.2 L (1.6-8.9) K/mcL BMP 08/23/17 06:27 Sodium 137 Potassium 3.3 L Chloride 113 H Carbon Dioxide 15 L BUN 15 Creatinine 1.06 Glucose 114 H Calcium 8.4 L Urine 08/23/17 Range/Units 03:50 Urine Color Yellow (Yellow) Urine Clarity Clear (Clear) Urine pH 6.5 (5.0-8.0) pH Units Ur Specific [place] 1.016 (1.010-1.025) Urine Protein 100 H (Neg-Trace) mg/dL Urine Glucose (UA) Normal (Normal) mg/dL - VTE Deep Vein Thrombosis/Pulmonary Embolism Present on Admission: No Consult Discharge Plan - Plan Referrals: Jose Ocampo CNP [Primary Care Provider] - (web request 08/28/2017)
[2017-08-24] MEDS: *HR* Heparin 5,000 UNIT/ML VIAL SQ SCH ×2 (05:56→17:38)
[2017-08-24 08:20] LABS: Eosinophils % 1.4 %; Hematocrit 21.1 % (37.5-50.1); Hemoglobin 6.7 g/dL (12.9-16.9); Immature Granulocytes % 4.3 % (0-4); Lymphocytes # 0.5 K/mcL (0.6-4.6); Lymphocytes % 68.6 %; Mean Corpuscular HGB Conc 31.8 g/dL (31.6-35.5); Mean Corpuscular Hemoglobin 30.6 pg (28.0-33.3); Mean Corpuscular Volume 96.3 fL (83.0-100.0); Monocytes % 1.4 %; Neutrophils # 0.2 K/mcL (1.6-8.9); Platelet Count 253 K/mcL (140-400); Red Blood Count 2.19 M/mcL (4.19-5.50); Red Cell Distribution Width 21.9 % (11.5-14.5); Segmented Neutrophils % 24.3 %
[2017-08-24 08:40] LABS: Macrocytosis Present (Not Present); Platelet Estimate Normal (Normal)
[2017-08-24 08:41] LABS: Anisocytosis 2+ (Not Present); BUN/Creatinine Ratio 15 (6-26); Blood Urea Nitrogen 14 mg/dL (8-23); Calcium 8.4 mg/dL (8.6-10.3); Carbon Dioxide 15 mEq/L (23-29); Chloride 116 mEq/L (98-107); Glucose 108 mg/dL (70-105); Hypochromasia Present (Not Present); Magnesium 1.6 mg/dL (1.6-2.6); Microcytosis Present (Not Present); Osmolality,Calculated 285 (280-300); Potassium 3.7 mEq/L (3.5-5.1); Sodium 137 mEq/L (136-145); eGFR For African Americans > 60 (> 60); eGFR For Non-African Americans > 60 (> 60)
[2017-08-24] MEDS: Thiamine (B-1) 100 MG TABLET PO SCH (08:54)
[2017-08-24] MEDS: amLODIPine 5 MG TABLET PO SCH (08:54)
[2017-08-24] MEDS: Finasteride 5 MG TABLET PO SCH (08:55)
[2017-08-24] MEDS: Megestrol Acetate 400 MG/10 ML UDC PO SCH (08:55)
[2017-08-24] MEDS: Doxycycline 100 MG CAPSULE PO SCH ×2 (08:55→22:24)
[2017-08-24] MEDS: D5% in 0.45% NACL w KCl 20 MEQ/1,000 ML MLS IVC SCH (08:58)
--- NOTE | 2017-08-24 16:38 | Oncology Inp Progress Note ---
<Hilda Esqueda L - Last Filed: 08/25/17 09:59> Date of Encounter: 08/24/17 Time of Encounter: 15:00 (1) Acute myeloid leukemia Current Visit: No Status: Acute Assessment and plan: Diagnosed with a bone marrow biopsy at [facility], patient did not want to participate in any clinical trials, he started decitabine treatment since April 2017, initially tolerated it well. He has had treatment delays secondary to increasing weakness and poor quality of life, requiring periodic transfusions. Continue supportive management, PT/OT evals, nutrition eval. Severe neutropenia, low grade temp since admission Panculture if patient develops a fever >100.4. prohylactic ATB de-escalated back to doxycycline Following discussion with patient/patients , he wishes to continue to pursue treatment on an outpatient basis. May consider lengthening time span in betwen cycles to Q6 weeks. He has developed increased expiratory wheezing on exam-check CXR, scheduled duoneb treatments Q6H. He does have a h/o COPD. Continue with supportive management at this time. Encouraged PT participation. Patients concerned about taking him home due to his physical decline, PT to evaluate further, will consult SS. Nursing staff to assist patient to ambulate as tolerated. Qualifiers: Leukemia Active/Remission status: without remission Qualified Code(s): C92.00 - Acute myeloblastic leukemia, not having achieved remission (2) Diarrhea Current Visit: Yes Status: Acute Assessment and plan: Check stool culture with GI panel High risk fro C Diff given his chronic ATB use Hold all laxatives/stool softeners No abdominal pain, nausea or vomiting Qualifiers: Qualified Code(s): R19.7 - Diarrhea, unspecified (3) Anemia Current Visit: No Status: Chronic Assessment and plan: Secondary to AML Hgb 6.7 this morning. Type, cross, transfuse 2 units PRBC Qualifiers: Anemia type: other cause Other causes of anemia: antineoplastic chemotherapy Qualified Code(s): D64.81 - Anemia due to antineoplastic chemotherapy; T45.1X5A - Adverse effect of antineoplastic and immunosuppressive drugs, initial encounter Oncology: Subj Interval history: Mr. Saxena is resting in bed. He denies pain, chest pain, SOB, hemoptysis or recent fever/chills. He reports diarrhea multiple times today. No abdominal pain or acute abdomen, no nausea or vomiting. His states that she feels as though his work of breathing has slightly increased, he does report SOB on exertion. We discussed plans for discharge home. Patient and feel as though he is too weak to return home, hopeful he will feel stronger after his PRBC transfusion and to return home in next day or so - Constitutional Vitals: Vital Signs Temp Pulse Resp BP Pulse Ox 08/24/17 16:27 98.7 F 88 16 134/77 99 08/24/17 10:56 98.9 F 97 17 122/66 98 08/24/17 07:38 98.5 F 83 16 134/79 99 08/24/17 04:00 99.9 F H 88 16 129/73 98 08/23/17 23:29 99 F 103 16 150/73 99 08/23/17 18:57 98.6 F 100 16 123/81 99 Intake and Output 08/24/17 08/24/17 08/24/17 07:59 15:59 23:59 Intake Total 1000 / 1000 0 / 0 Output Total 200 / 200 200 / 200 Balance 800 / 800 -200 / -200 Intake: IV Fluids 1000 / 1000 KCl 20mEq IN D5%-0.45 NACL 20 1000 / 1000 meq In 1,000 ml @ 100 mls/hr IVC .Q10H [facility] Rx#:[id number] Oral 0 / 0 Output: Urine 200 / 200 200 / 200 Other: Meal Breakfast Percent of Meal Consumed 80% Stool Size Moderate Stool Consistency soft Stool Color Brown # Voids 1 # Bowel Movements 1 General appearance: cooperative, no acute distress, thin, no febrile Exam: chronically ill appearing - Head Head exam: Present: atraumatic - ENT ENT exam: Present: mucous membranes moist - Respiratory Respiratory exam: Absent: respiratory distress Additional comments: exp wheezes bilaterally - Cardiovascular Cardiovascular exam: Present: RRR, +S1, +S2 - GI/Abdominal GI/Abdominal exam: Present: normal bowel sounds, soft. Absent: guarding, rebound, tenderness - Extremities Exam Extremities exam: Present: normal inspection. Absent: calf tenderness - Neurological Exam Neurological exam: Present: alert, oriented X3, no focal deficits, strengths equal and symetr throughout - Psychiatric Psychiatric exam: Present: normal affect, normal mood - Skin Skin exam: Present: dry, intact, pallor, warm Oncology: Obj Data - Labs CBC & Chem 7: 08/25/17 06:38 08/25/17 06:38 Consult Discharge Plan - Plan Referrals: Jose Ocampo, MICHELLE [Primary Care Provider] - <Anthony,Nathaniel S - Last Filed: 08/25/17 17:41> Date of Encounter: 08/25/17 - Constitutional Vitals: Vital Signs Temp Pulse Resp BP Pulse Ox 08/25/17 16:00 99.8 F H 92 14 118/69 98 08/25/17 11:24 98.8 F 86 14 116/52 97 08/25/17 10:42 18 98 08/25/17 07:01 98.7 F 113 15 100/61 97 08/25/17 04:21 99.2 F 91 18 127/70 97 08/25/17 04:10 18 98 08/25/17 00:20 99.3 F 98 18 126/90 98 08/25/17 00:17 99.3 F 96 18 126/90 08/24/17 21:15 18 98 08/24/17 20:44 98.6 F 82 16 152/77 08/24/17 20:30 98.7 F 102 16 116/69 08/24/17 19:55 98.8 F 84 16 152/78 08/24/17 18:57 99.4 F 73 18 126/70 99 Intake and Output 08/25/17 08/25/17 08/25/17 07:59 15:59 23:59 Intake Total 350 / 350 1000 / 1000 Output Total 500 / 500 Balance -150 / -150 1000 / 1000 Intake: IV Fluids 1000 / 1000 KCl 20mEq IN D5%-0.45 NACL 20 1000 / 1000 meq In 1,000 ml @ 100 mls/hr IVC .Q10H [facility] Rx#:[id number] Blood Product 350 / 350 Rbcs Leuko Poor As-1 Unit 350 / 350 [id number] Output: Urine 500 / 500 Other: Weight 65 kg Patient Weight 08/25/17 23:59 Weight 65 kg Oncology: Obj Data - Labs CBC & Chem 7: 08/25/17 06:38 08/25/17 06:38 Labs: Laboratory Results - last 24 hr 08/24/17 08/25/17 08/25/17 15:28 06:38 06:38 WBC 0.7 L* RBC 2.87 L Hgb 8.8 L D Hct 27.2 L MCV 94.8 MCH 30.7 MCHC 32.4 RDW 20.6 H Plt Count 288 MPV 11.3 Immature Gran % 2.9 Seg Neutrophils % 20.3 Lymphocytes % 72.5 Monocytes % 2.9 Eosinophils % 1.4 Basophils % 0.0 Neutrophils # 0.1 L Lymphocytes # 0.5 L Monocytes # 0.0 Eosinophils # 0.0 Basophils # 0.0 Platelet Estimate Normal Large Platelets Present A Anisocytosis 2+ A Microcytosis Present A Macrocytosis Present A Sodium 137 Potassium 4.3 Chloride 114 H Carbon Dioxide 16 L BUN 12 Creatinine 1.10 Est GFR ( Amer) > 60 Est GFR (Non-Af Amer) > 60 BUN/Creatinine Ratio 11 Glucose 108 H Calculated Osmolality 284 Calcium 8.8 Magnesium 1.6 Blood Type O POSITIVE Antibody Screen NEGATIVE Crossmatch See Detail - Attending Attestation I examined this patient and my medical decision-making was reviewed with the Advanced Practice Nurse. I agree with the documented findings, disposition and treatment plan as described except to the extent set forth below. 1. Acute myeloid leukemia Continue to have severe neutropenia. Platelets normal. Also symptomatic anemia post 1 unit packed RBC transfusion 2. Acute diarrhea. Creatinine mildly elevated at 1.1. He had recent antibiotics Check stool for C. difficile. Start Flagyl 500 mg by mouth 3 times a day
[2017-08-24] MEDS ORDERED: 0.9 % Sodium Chloride 250 ML ONE ×2 (16:40→20:18)
[2017-08-24] MEDS: Mirtazapine 15 MG TABLET PO SCH (17:22)
[2017-08-24] MEDS ORDERED: Ipratropium/Albuterol Neb 3 ML IH SCH (18:00)
[2017-08-24] MEDS: Ipratropium/Albuterol Neb 3 ML IH SCH (21:14)
--- NOTE | 2017-08-25 00:01 | Internal Med Progress Note ---
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 Status: Acute Qualifiers: Leukemia Active/Remission status: without remission Qualified Code(s): C92.00 - Acute myeloblastic leukemia, not having achieved remission (4) COPD exacerbation Current Visit: Yes Status: Acute (5) Acute hypokalemia Current Visit: Yes Status: Acute (6) HTN (hypertension) Current Visit: Yes Status: Acute Qualifiers: Hypertension type: essential hypertension Qualified Code(s): I10 - Essential (primary) hypertension (7) Debility Current Visit: Yes Status: Chronic - Time Spent With Patient Total time spent is greater than 50% in coordination of care (as documented) at patient's floor/unit and/or counseling patient: - Subjective Interval history: .. Complains of some coughing and wheezing. He is not hypoxic. Denies chest pain. Denies abdominal pain, nausea and vomiting. He has normal urination. OBJECTIVE: .. See below.. ASSESSMENT AND PLAN: .. Neutropenia/acute myeloid leukemia. Treatment as per oncology. Anemia. His hemoglobin dropped from 7.7-6.7.We will transfuse him with 2 units of packed red blood cells. COPD exacerbation. He is started on nebulizer treatments with DuoNeb. Hypertension. Under control. We will continue amlodipine. Debility. We will continue supportive treatment. We will continue nutritional support. - Constitutional Vitals: Temp Pulse Resp BP Pulse Ox 98.6 F 82 18 152/77 98 08/24/17 20:44 08/24/17 20:44 08/24/17 21:15 08/24/17 20:44 08/24/17 21:15 General appearance: Present: cachectic, no acute distress, underweight, answers questions appropriately - Respiratory Respiratory exam: Present: CTAB. Absent: accessory muscle use, rales Additional comments: I can hear a few bilateral rhonchi and wheezes. - Cardiovascular Cardiovascular exam: Present: RRR, +S1, +S2. Absent: diastolic murmur, gallop, rubs, systolic murmur - GI/Abdominal GI/Abdominal exam: Present: normal bowel sounds, soft, no peritoneal signs. Absent: distended, tenderness - Skin Skin exam: Present: dry, intact Internal Medicine: Result - Labs CBC & Chem 7: 08/28/17 03:22 08/28/17 03:22 Labs: Short CBC 08/24/17 Range/Units 08:05 WBC 0.7 L* (4.3-11.1) K/mcL Hgb 6.7 L (12.9-16.9) g/dL Hct 21.1 L (37.5-50.1) % Plt Count 253 (140-400) K/mcL Neutrophils # 0.2 L (1.6-8.9) K/mcL BMP 08/24/17 08:05 Sodium 137 Potassium 3.7 Chloride 116 H Carbon Dioxide 15 L BUN 14 Creatinine 0.96 Glucose 108 H Calcium 8.4 L - Impressions Impressions Chest X-Ray 08/24/17 16:07 IMPRESSION: No acute process. D/ / César Coley MD / César Coley MD Interpreting Provider: César Coley MD Consult Discharge Plan - Plan Referrals: Jose Ocampo CNP [Primary Care Provider] - (web request 08/28/2017)
[2017-08-25] MEDS: D5% in 0.45% NACL w KCl 20 MEQ/1,000 ML MLS IVC SCH ×2 (01:39→14:35)
[2017-08-25] MEDS: Ipratropium/Albuterol Neb 3 ML IH SCH ×4 (04:09→22:55)
[2017-08-25] MEDS: *HR* Heparin 5,000 UNIT/ML VIAL SQ SCH ×2 (06:09→18:12)
[2017-08-25 07:08] LABS: Mean Corpuscular HGB Conc 32.4 g/dL (31.6-35.5)
[2017-08-25 07:10] LABS: Eosinophils % 1.4 %; Hematocrit 27.2 % (37.5-50.1); Hemoglobin 8.8 g/dL (12.9-16.9); Immature Granulocytes % 2.9 % (0-4); Lymphocytes # 0.5 K/mcL (0.6-4.6); Lymphocytes % 72.5 %; Mean Corpuscular Hemoglobin 30.7 pg (28.0-33.3); Mean Corpuscular Volume 94.8 fL (83.0-100.0); Mean Platelet Volume 11.3 fL (9.4-12.4); Monocytes % 2.9 %; Neutrophils # 0.1 K/mcL (1.6-8.9); Platelet Count 288 K/mcL (140-400); Red Blood Count 2.87 M/mcL (4.19-5.50); Red Cell Distribution Width 20.6 % (11.5-14.5); Segmented Neutrophils % 20.3 %
[2017-08-25 07:22] LABS: BUN/Creatinine Ratio 11 (6-26); Blood Urea Nitrogen 12 mg/dL (8-23); Calcium 8.8 mg/dL (8.6-10.3); Carbon Dioxide 16 mEq/L (23-29); Chloride 114 mEq/L (98-107); Glucose 108 mg/dL (70-105); Magnesium 1.6 mg/dL (1.6-2.6); Osmolality,Calculated 284 (280-300); Potassium 4.3 mEq/L (3.5-5.1); Sodium 137 mEq/L (136-145); eGFR For African Americans > 60 (> 60); eGFR For Non-African Americans > 60 (> 60)
[2017-08-25] MEDS: Finasteride 5 MG TABLET PO SCH (07:47)
[2017-08-25] MEDS: Thiamine (B-1) 100 MG TABLET PO SCH (07:47)
[2017-08-25] MEDS: Doxycycline 100 MG CAPSULE PO SCH ×2 (07:47→22:01)
[2017-08-25] MEDS: Megestrol Acetate 400 MG/10 ML UDC PO SCH (07:48)
[2017-08-25] MEDS: amLODIPine 5 MG TABLET PO SCH (07:48)
[2017-08-25] MEDS: *HR* OxyCODONE Immed Rel 5 MG TABLET PO PRN ×2 (07:49→22:09)
[2017-08-25 08:44] LABS: Platelet Estimate Normal (Normal)
[2017-08-25 08:45] LABS: Large Platelets Present (Not Present); Macrocytosis Present (Not Present)
[2017-08-25 08:49] LABS: Anisocytosis 2+ (Not Present); Microcytosis Present (Not Present)
[2017-08-25] MEDS: Mirtazapine 15 MG TABLET PO SCH (17:59)
[2017-08-25] MEDS: metroNIDAZOLE 500 MG TABLET PO SCH ×2 (18:15→22:09)
--- NOTE | 2017-08-25 23:37 | Internal Med Progress Note ---
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 Status: Acute Qualifiers: Leukemia Active/Remission status: without remission Qualified Code(s): C92.00 - Acute myeloblastic leukemia, not having achieved remission (4) COPD exacerbation Current Visit: Yes Status: Acute (5) Acute hypokalemia Current Visit: Yes Status: Acute (6) HTN (hypertension) Current Visit: Yes Status: Acute Qualifiers: Hypertension type: essential hypertension Qualified Code(s): I10 - Essential (primary) hypertension (7) Debility Current Visit: Yes Status: Chronic - Time Spent With Patient Total time spent is greater than 50% in coordination of care (as documented) at patient's floor/unit and/or counseling patient: - Subjective Interval history: .. Feeling better. He received 2 units of packed red blood cells yesterday. He has less coughing and wheezing. He was started on nebulizer treatments with DuoNeb yesterday. OBJECTIVE: .. See below.. ASSESSMENT AND PLAN: .. Neutropenia/anemia/acute myeloid leukemia. Treatment as per oncology. COPD exacerbation. Mild. Continue nebulizer treatments with DuoNeb. Acute hypokalemia. His potassium today is 4.3. It was 3.7 yesterday. We will continue supplemental oral potassium chloride. Hypertension. Under control. We will continue amlodipine. Debility. We will continue supportive treatments. - Constitutional Vitals: Temp Pulse Resp BP Pulse Ox 99.2 F 98 16 132/78 96 08/25/17 19:24 08/25/17 19:24 08/25/17 22:55 08/25/17 19:24 08/25/17 22:55 General appearance: Present: cachectic, no acute distress, underweight, answers questions appropriately Internal Medicine: Result - Labs CBC & Chem 7: 08/28/17 03:22 08/28/17 03:22 Labs: Short CBC 08/25/17 Range/Units 06:38 WBC 0.7 L* (4.3-11.1) K/mcL Hgb 8.8 L D (12.9-16.9) g/dL Hct 27.2 L (37.5-50.1) % Plt Count 288 (140-400) K/mcL Neutrophils # 0.1 L (1.6-8.9) K/mcL BMP 08/25/17 06:38 Sodium 137 Potassium 4.3 Chloride 114 H Carbon Dioxide 16 L BUN 12 Creatinine 1.10 Glucose 108 H Calcium 8.8 Consult Discharge Plan - Plan Referrals: Jose Ocampo CNP [Primary Care Provider] - (web request 08/28/2017)
[2017-08-26] MEDS: Ipratropium/Albuterol Neb 3 ML IH SCH ×4 (04:03→22:09)
[2017-08-26] MEDS: *HR* Heparin 5,000 UNIT/ML VIAL SQ SCH ×2 (06:18→17:06)
[2017-08-26] MEDS: metroNIDAZOLE 500 MG TABLET PO SCH ×2 (09:07→15:00)
[2017-08-26] MEDS: Doxycycline 100 MG CAPSULE PO SCH ×2 (09:07→21:17)
[2017-08-26] MEDS: Megestrol Acetate 400 MG/10 ML UDC PO SCH (09:08)
[2017-08-26] MEDS: Thiamine (B-1) 100 MG TABLET PO SCH (09:08)
[2017-08-26] MEDS: Finasteride 5 MG TABLET PO SCH (09:08)
[2017-08-26] MEDS: amLODIPine 5 MG TABLET PO SCH (09:08)
[2017-08-26 15:57] LABS: Hematocrit 26.9 % (37.5-50.1); Hemoglobin 8.7 g/dL (12.9-16.9); Lymphocytes # 0.4 K/mcL (0.6-4.6); Lymphocytes % 58.2 %; Mean Corpuscular HGB Conc 32.3 g/dL (31.6-35.5); Mean Corpuscular Hemoglobin 30.6 pg (28.0-33.3); Mean Corpuscular Volume 94.7 fL (83.0-100.0); Mean Platelet Volume 10.5 fL (9.4-12.4); Monocytes % 3.6 %; Neutrophils # 0.2 K/mcL (1.6-8.9); Platelet Count 288 K/mcL (140-400); Red Blood Count 2.84 M/mcL (4.19-5.50); Red Cell Distribution Width 21.6 % (11.5-14.5); Segmented Neutrophils % 38.2 %
[2017-08-26 16:18] LABS: Alanine Aminotransferase 17 Units/L (7-52); Alkaline Phosphatase 67 Units/L (34-104); Aspartate Amino Transferase 13 Units/L (13-39); BUN/Creatinine Ratio 14 (6-26); Bilirubin,Total 0.5 mg/dL (0.3-1.0); Blood Urea Nitrogen 16 mg/dL (8-23); Calcium 8.9 mg/dL (8.6-10.3); Carbon Dioxide 18 mEq/L (23-29); Chloride 110 mEq/L (98-107); Globulin 2.9 g/dL (2.4-3.5); Glucose 124 mg/dL (70-105); Osmolality,Calculated 279 (280-300); Potassium 4.6 mEq/L (3.5-5.1); Sodium 133 mEq/L (136-145); Total Protein 5.9 g/dL (6.4-8.9); eGFR For African Americans > 60 (> 60); eGFR For Non-African Americans > 60 (> 60)
[2017-08-26] MEDS: Mirtazapine 15 MG TABLET PO SCH (17:05)
--- NOTE | 2017-08-26 18:20 | Oncology Inp Progress Note ---
<Hilda Esqueda L - Last Filed: 08/26/17 18:17> Date of Encounter: 08/26/17 Time of Encounter: 16:30 (1) Acute myeloid leukemia Current Visit: No Status: Acute Assessment and plan: Diagnosed with a bone marrow biopsy at [facility], patient did not want to participate in any clinical trials, he started decitabine treatment since April 2017, initially tolerated it well. He has had treatment delays secondary to increasing weakness and poor quality of life, requiring periodic transfusions. Panculture if patient develops a fever >100.4. Plan: He has no identified source of infection and continues on his prophylactic dose of doxycycline as he takes at home, he has not had a fever >100.4 since admission. He is generally deconditioned and has more recently tolerated his treatment quite poorly. He is slowly increasing his activity and his appetite has improved. Continue with supportive management. Transfuse as needed. I will order zofran for his nausea. Continue to encourage ambulation. His wishes to take him home without any assistance from other supportive services. Expect hopeful discharge within the next 24-48 hours. Treatment options to be discussed further on outpatient basis. 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 No BM in 2 days. Stop flagyl Stool cultures/C Diff cancelled Slowly restart laxatives prn Qualifiers: Qualified Code(s): R19.7 - Diarrhea, unspecified (3) Anemia Current Visit: No Status: Chronic Assessment and plan: Secondary to AML S/P 2 units PRBC. Continue to transfuse PRN. His cytopenias are secondary to his AML and are not expected to improve, this is patients baseline Please refer to Dr. Coleman's attestation below for additional details. Qualifiers: Anemia type: other cause Other causes of anemia: antineoplastic chemotherapy Qualified Code(s): D64.81 - Anemia due to antineoplastic chemotherapy; T45.1X5A - Adverse effect of antineoplastic and immunosuppressive drugs, initial encounter Oncology: Subj Interval history: Mr. Saxena is resting in bed with his at bedside. He states he has had a bit of a rough day and reports some nausea. denies abdominal pain or diarrhea. No fevers/chills. He has been ambulating in the lemus with his , encouraged continued activity as tolerated. - Constitutional Vitals: Vital Signs Temp Pulse Resp BP Pulse Ox 08/26/17 16:20 99.0 F 87 19 122/74 97 08/26/17 15:59 22 98 08/26/17 12:28 98.3 F 111 20 116/62 98 08/26/17 11:34 99.1 F 98 16 127/64 97 08/26/17 11:03 17 98 08/26/17 07:33 97.9 F 96 17 120/72 98 08/26/17 04:14 98.5 F 93 18 137/74 95 08/26/17 00:57 99.4 F 98 20 140/73 97 08/25/17 22:55 16 96 08/25/17 19:24 99.2 F 98 16 132/78 96 Intake and Output 08/26/17 08/26/17 08/26/17 07:59 15:59 23:59 Intake Total 1050 / 1050 360 / 360 240 / 240 Output Total 690 / 690 650 / 650 Balance 360 / 360 -290 / -290 240 / 240 Intake: IV Fluids 1000 / 1000 KCl 20mEq IN D5%-0.45 NACL 20 1000 / 1000 meq In 1,000 ml @ 100 mls/hr IVC .Q10H [facility] Rx#:[id number] Oral 50 / 50 360 / 360 240 / 240 Output: Urine 690 / 690 650 / 650 Other: Meal Lunch Dinner Percent of Meal Consumed 100% 100% # Voids 1 1 Weight 66.406 kg Patient Weight 08/26/17 23:59 Weight 66.406 kg General appearance: cooperative, no acute distress, no febrile Exam: chronically ill appearing - Head Head exam: Present: atraumatic - ENT ENT exam: Present: mucous membranes moist - Respiratory Respiratory exam: Present: decreased breath sounds. Absent: respiratory distress - Cardiovascular Cardiovascular exam: Present: RRR, +S1, +S2 - GI/Abdominal GI/Abdominal exam: Present: normal bowel sounds, soft. Absent: guarding, rebound, tenderness - Extremities Exam Extremities exam: Absent: calf tenderness - Neurological Exam Neurological exam: Present: alert, oriented X3, no focal deficits, strengths equal and symetr throughout - Psychiatric Psychiatric exam: Present: normal affect, normal mood - Skin Skin exam: Present: dry, intact, normal color, warm Oncology: Obj Data - Labs CBC & Chem 7: 08/26/17 15:43 08/26/17 15:43 Consult Discharge Plan - Plan Referrals: Jose Ocampo CNP [Primary Care Provider] - <Charles Coleman - Last Filed: 08/26/17 20:36> Date of Encounter: 08/26/17 - Constitutional Vitals: Vital Signs Temp Pulse Resp BP Pulse Ox 08/26/17 18:56 99.0 F 108 18 146/82 99 08/26/17 16:20 99.0 F 87 19 122/74 97 08/26/17 15:59 22 98 08/26/17 12:28 98.3 F 111 20 116/62 98 08/26/17 11:34 99.1 F 98 16 127/64 97 08/26/17 11:03 17 98 08/26/17 07:33 97.9 F 96 17 120/72 98 08/26/17 04:14 98.5 F 93 18 137/74 95 08/26/17 00:57 99.4 F 98 20 140/73 97 08/25/17 22:55 16 96 Intake and Output 08/26/17 08/26/17 08/27/17 08:59 16:59 00:59 Intake Total 1170 / 1170 240 / 240 240 / 240 Output Total 730 / 730 450 / 450 250 / 250 Balance 440 / 440 -210 / -210 -10 / -10 Intake: IV Fluids 1000 / 1000 KCl 20mEq IN D5%-0.45 NACL 20 1000 / 1000 meq In 1,000 ml @ 100 mls/hr IVC .Q10H [facility] Rx#:[id number] Oral 170 / 170 240 / 240 240 / 240 Output: Urine 730 / 730 450 / 450 250 / 250 Other: Meal Breakfast Lunch Dinner Percent of Meal Consumed 100% 100% 100% # Voids 1 1 Oncology: Obj Data - Labs CBC & Chem 7: 08/26/17 15:43 08/26/17 15:43 Labs: Laboratory Results - last 24 hr 08/26/17 08/26/17 15:43 15:43 WBC 0.6 L* RBC 2.84 L Hgb 8.7 L Hct 26.9 L MCV 94.7 MCH 30.6 MCHC 32.3 RDW 21.6 H Plt Count 288 MPV 10.5 Immature Gran % 0.0 Seg Neutrophils % 38.2 Lymphocytes % 58.2 Monocytes % 3.6 Eosinophils % 0.0 Basophils % 0.0 Neutrophils # 0.2 L Lymphocytes # 0.4 L Monocytes # 0.0 Eosinophils # 0.0 Basophils # 0.0 Sodium 133 L Potassium 4.6 Chloride 110 H Carbon Dioxide 18 L BUN 16 Creatinine 1.14 Est GFR ( Amer) > 60 Est GFR (Non-Af Amer) > 60 BUN/Creatinine Ratio 14 Glucose 124 H Calculated Osmolality 279 L Calcium 8.9 Total Bilirubin 0.5 AST 13 ALT 17 Alkaline Phosphatase 67 Serum Total Protein 5.9 L Albumin 3.0 L Globulin 2.9 Albumin/Globulin Ratio 1.0 L - Attending Attestation I examined this patient and my medical decision-making was reviewed with the Advanced Practice Nurse. I agree with the documented findings, disposition and treatment plan as described except to the extent set forth below. Mr. Saxena is clinically improving but remains debilitated. Counts are stable, and do not expect much change in the future. Hopefully home next 24-48 hours on doxycycline. Encouraged oral intake and ambulation. No need for transfusion or G-CSF. If he has issues with tolerance of decitabine, would consider IDH2 inhibition.
[2017-08-26] MEDS ORDERED: Ondansetron ODT 4 MG TAB.RAPDIS SL PRN (18:28)
[2017-08-26] MEDS: *HR* OxyCODONE Immed Rel 5 MG TABLET PO PRN (21:17)
[2017-08-26] MEDS: Melatonin 3 MG TABLET PO PRN (21:17)
[2017-08-27] MEDS: Ipratropium/Albuterol Neb 3 ML IH SCH ×4 (03:51→22:45)
[2017-08-27] MEDS: *HR* Heparin 5,000 UNIT/ML VIAL SQ SCH ×2 (05:41→17:31)
--- NOTE | 2017-08-27 06:00 | Internal Med Progress Note ---
Date of Encounter: 08/26/17 Time of Encounter: 18:45 - Assessment and plan (1) Neutropenia Status: Acute Qualifiers: Neutropenia type: other Qualified Code(s): D70.8 - Other neutropenia (2) Acute myeloid leukemia Status: Chronic Qualifiers: Leukemia Active/Remission status: without remission Qualified Code(s): C92.00 - Acute myeloblastic leukemia, not having achieved remission (3) HTN (hypertension) Status: Acute Qualifiers: Hypertension type: essential hypertension Qualified Code(s): I10 - Essential (primary) hypertension (4) Anemia Status: Chronic Qualifiers: Anemia type: other cause Other causes of anemia: antineoplastic chemotherapy Qualified Code(s): D64.81 - Anemia due to antineoplastic chemotherapy; T45.1X5A - Adverse effect of antineoplastic and immunosuppressive drugs, initial encounter (5) Debility Status: Chronic (6) Severe protein-calorie malnutrition Status: Acute - Time Spent With Patient Total time spent is greater than 50% in coordination of care (as documented) at patient's floor/unit and/or counseling patient: 25 - 35 minutes - Subjective Interval history: .. The patient feels weak and tired. He has developed some nausea but not vomiting. Denies abdominal pain. He has normal urination. Denies chest pain and difficulty breathing. He has mild cough but not wheezing. OBJECTIVE: .. Skin: Free of rash and discoloration Respiratory: Normal breath sounds; no crackles or wheezes. CV: Heart is regular; no gallop or murmur. GI: Abdomen is soft and not tender. There is no palpable mass or visceromegaly. ASSESSMENT AND PLAN: .. Neutropenia/anemia/acute myeloid leukemia. See notes from oncology service. There is ongoing discussion between the patient/his family and oncology about the risks and benefits for further therapy. Hypertension. Under control. Will continue Norvasc. Debility/severe protein calorie malnutrition. Will continue supportive treatment. The patient is on a regular diet. He gets dietary supplements. We will give him when necessary Zofran for nausea. - Constitutional Vitals: Temp Pulse Resp BP Pulse Ox 98.7 F 99 18 137/56 98 08/27/17 04:13 08/27/17 04:13 08/27/17 04:13 08/27/17 04:13 08/27/17 04:13 General appearance: Present: cachectic, no acute distress, underweight, answers questions appropriately Internal Medicine: Result - Labs CBC & Chem 7: 08/28/17 03:22 08/28/17 03:22 Labs: Short CBC 08/26/17 Range/Units 15:43 WBC 0.6 L* (4.3-11.1) K/mcL Hgb 8.7 L (12.9-16.9) g/dL Hct 26.9 L (37.5-50.1) % Plt Count 288 (140-400) K/mcL Neutrophils # 0.2 L (1.6-8.9) K/mcL BMP 08/26/17 15:43 Sodium 133 L Potassium 4.6 Chloride 110 H Carbon Dioxide 18 L BUN 16 Creatinine 1.14 Glucose 124 H Calcium 8.9 Liver Function 08/26/17 Range/Units 15:43 Total Bilirubin 0.5 (0.3-1.0) mg/dL AST 13 (13-39) Units/L ALT 17 (7-52) Units/L Alkaline Phosphatase 67 (34-104) Units/L Albumin 3.0 L (3.5-5.7) g/dL Consult Discharge Plan - Plan Referrals: Jose Ocampo MARKET MANAGER [Primary Care Provider] - (web request sent. If you do not hear from your PCP by Tuesday morning please call and schedule a 5-7 day hospital follow up. Thank you!) Prescriptions: Buspirone HCl [Buspar] 7.5 mg PO BID #60 tablet Potassium Chloride 20 meq PO BID #60 tab.er.prt Thiamine (B-1) [Vitamin B-1] 200 mg PO DAILY #30 tablet
[2017-08-27] MEDS: Megestrol Acetate 400 MG/10 ML UDC PO SCH (08:09)
[2017-08-27] MEDS: Thiamine (B-1) 100 MG TABLET PO SCH (08:09)
[2017-08-27] MEDS: Doxycycline 100 MG CAPSULE PO SCH ×2 (08:09→21:15)
[2017-08-27] MEDS: Finasteride 5 MG TABLET PO SCH (08:09)
[2017-08-27] MEDS: amLODIPine 5 MG TABLET PO SCH (08:09)
[2017-08-27] MEDS: *HR* OxyCODONE Immed Rel 5 MG TABLET PO PRN (17:30)
[2017-08-27] MEDS: Mirtazapine 15 MG TABLET PO SCH (17:30)
[2017-08-27] MEDS: Melatonin 3 MG TABLET PO PRN (21:16)
[2017-08-27] MEDS: D5% in 0.45% NACL w KCl 20 MEQ/1,000 ML MLS IVC SCH (21:39)
[2017-08-28 03:51] LABS: Red Cell Distribution Width 21.5 % (11.5-14.5)
[2017-08-28 03:52] LABS: Hematocrit 28.3 % (37.5-50.1); Hemoglobin 9.1 g/dL (12.9-16.9); Lymphocytes # 0.4 K/mcL (0.6-4.6); Mean Corpuscular HGB Conc 32.2 g/dL (31.6-35.5); Mean Corpuscular Volume 96.3 fL (83.0-100.0); Mean Platelet Volume 11.2 fL (9.4-12.4); Monocytes % 3.8 %; Neutrophils # 0.4 K/mcL (1.6-8.9); Platelet Count 358 K/mcL (140-400); Red Blood Count 2.94 M/mcL (4.19-5.50); Segmented Neutrophils % 46.2 %
[2017-08-28] MEDS: Ipratropium/Albuterol Neb 3 ML IH SCH ×4 (03:58→22:16)
[2017-08-28 04:07] LABS: BUN/Creatinine Ratio 18 (6-26); Blood Urea Nitrogen 23 mg/dL (8-23); Carbon Dioxide 15 mEq/L (23-29); Chloride 110 mEq/L (98-107); Glucose 112 mg/dL (70-105); Osmolality,Calculated 280 (280-300); Potassium 4.5 mEq/L (3.5-5.1); Sodium 133 mEq/L (136-145); eGFR For African Americans > 60 (> 60); eGFR For Non-African Americans 53 (> 60)
[2017-08-28] MEDS: *HR* Heparin 5,000 UNIT/ML VIAL SQ SCH ×2 (04:18→18:25)
[2017-08-28] MEDS: *HR* OxyCODONE Immed Rel 5 MG TABLET PO PRN ×2 (04:18→18:25)
[2017-08-28] MEDS: Thiamine (B-1) 100 MG TABLET PO SCH (08:37)
[2017-08-28] MEDS: Doxycycline 100 MG CAPSULE PO SCH ×2 (08:37→22:23)
[2017-08-28] MEDS: Finasteride 5 MG TABLET PO SCH (08:38)
[2017-08-28] MEDS: amLODIPine 5 MG TABLET PO SCH (08:38)
[2017-08-28] MEDS: Megestrol Acetate 400 MG/10 ML UDC PO SCH (08:39)
[2017-08-28] MEDS: Mirtazapine 15 MG TABLET PO SCH (18:25)
--- NOTE | 2017-08-28 23:14 | Internal Med Progress Note ---
Date of Encounter: 08/27/17 Time of Encounter: 17:00 - Assessment and plan (1) Neutropenia Status: Acute Qualifiers: Neutropenia type: other Qualified Code(s): D70.8 - Other neutropenia (2) Acute myeloid leukemia Status: Chronic Qualifiers: Leukemia Active/Remission status: without remission Qualified Code(s): C92.00 - Acute myeloblastic leukemia, not having achieved remission (3) HTN (hypertension) Status: Acute Qualifiers: Hypertension type: essential hypertension Qualified Code(s): I10 - Essential (primary) hypertension (4) Anemia Status: Chronic Qualifiers: Anemia type: other cause Other causes of anemia: antineoplastic chemotherapy Qualified Code(s): D64.81 - Anemia due to antineoplastic chemotherapy; T45.1X5A - Adverse effect of antineoplastic and immunosuppressive drugs, initial encounter (5) Debility Status: Chronic (6) Constipation Status: Acute Qualifiers: Constipation type: other constipation type Qualified Code(s): K59.09 - Other constipation - Time Spent With Patient Total time spent is greater than 50% in coordination of care (as documented) at patient's floor/unit and/or counseling patient: 25 - 35 minutes - Subjective Interval history: .. The patient feels weak and tired. He has developed some nausea but not vomiting. He takes when necessary sublingual Zofran. Complains of constipation. Denies abdominal pain. He has normal urination. Denies chest pain and difficulty breathing. He has mild cough but not wheezing. OBJECTIVE: .. Skin: Free of rash and discoloration Respiratory: Normal breath sounds; no crackles or wheezes. CV: Heart is regular; no gallop or murmur. GI: Abdomen is soft and not tender. There is no palpable mass or visceromegaly. ASSESSMENT AND PLAN: .. Neutropenia/anemia/acute myeloid leukemia. See notes from oncology service. There is ongoing discussion between the patient/his family and oncology about the risks and benefits for further therapy. Hypertension. Under control. Will continue Norvasc. Debility/severe protein calorie malnutrition. Will continue supportive treatment. The patient is on a regular diet. He gets dietary supplements. He takes Megace and Marinol. Constipation/nausea but not vomiting. We will give him MiraLAX. We will continue when necessary Zofran. NOTE. CBC and BMP in the morning. - Constitutional Vitals: Temp Pulse Resp BP Pulse Ox 99.5 F 104 17 144/76 99 08/28/17 21:03 08/28/17 21:03 08/28/17 21:03 08/28/17 21:03 08/28/17 21:03 General appearance: Present: cachectic, no acute distress, underweight, answers questions appropriately Internal Medicine: Result - Labs CBC & Chem 7: 08/28/17 03:22 08/28/17 03:22 Labs: Short CBC 08/28/17 Range/Units 03:22 WBC 0.8 L* (4.3-11.1) K/mcL Hgb 9.1 L (12.9-16.9) g/dL Hct 28.3 L (37.5-50.1) % Plt Count 358 (140-400) K/mcL Neutrophils # 0.4 L (1.6-8.9) K/mcL BMP 08/28/17 03:22 Sodium 133 L Potassium 4.5 Chloride 110 H Carbon Dioxide 15 L BUN 23 Creatinine 1.30 Glucose 112 H Calcium 9.0 Consult Discharge Plan - Plan Referrals: Jose Ocampo, RN PEDIATRIC [Primary Care Provider] - (web request sent. If you do not hear from your PCP by Tuesday morning please call and schedule a 5-7 day hospital follow up. Thank you!) Prescriptions: Buspirone HCl [Buspar] 7.5 mg PO BID #60 tablet Potassium Chloride 20 meq PO BID #60 tab.er.prt Thiamine (B-1) [Vitamin B-1] 200 mg PO DAILY #30 tablet
--- NOTE | 2017-08-28 23:15 | Internal Med Progress Note ---
Date of Encounter: 08/28/17 Time of Encounter: 23:14 - Assessment and plan (1) Neutropenia Status: Acute Qualifiers: Neutropenia type: other Qualified Code(s): D70.8 - Other neutropenia (2) Acute myeloid leukemia Status: Chronic Qualifiers: Leukemia Active/Remission status: without remission Qualified Code(s): C92.00 - Acute myeloblastic leukemia, not having achieved remission (3) HTN (hypertension) Status: Acute Qualifiers: Hypertension type: essential hypertension Qualified Code(s): I10 - Essential (primary) hypertension (4) Anemia Status: Chronic Qualifiers: Anemia type: other cause Other causes of anemia: antineoplastic chemotherapy Qualified Code(s): D64.81 - Anemia due to antineoplastic chemotherapy; T45.1X5A - Adverse effect of antineoplastic and immunosuppressive drugs, initial encounter (5) Debility Status: Chronic (6) Severe protein-calorie malnutrition Status: Acute - Time Spent With Patient Total time spent is greater than 50% in coordination of care (as documented) at patient's floor/unit and/or counseling patient: 25 - 35 minutes - Subjective Interval history: .. He feels stronger. He made good bowel movement recently. His nausea subsided. He seems to have better appetite. Denies chest pain. Denies difficulty breathing. OBJECTIVE: .. Skin: Free of rash and discoloration Respiratory: Normal breath sounds; no crackles or wheezes. CV: Heart is regular; no gallop or murmur. GI: Abdomen is soft and not tender. There is no palpable mass or visceromegaly. ASSESSMENT AND PLAN: .. Neutropenia/anemia/acute myeloid leukemia. His hemoglobin is 9.1. His WBC count is 0.8; 0.6 yesterday. Hypertension. Under control. Will continue Norvasc. Debility/severe protein calorie malnutrition. Will continue supportive treatment. The patient is on a regular diet. He gets dietary supplements. He takes Megace and Marinol. Constipation/nausea but not vomiting. He gets when necessary MiraLAX. NOTE. Tentative discharge is tomorrow. - Constitutional Vitals: Temp Pulse Resp BP Pulse Ox 99.5 F 104 17 144/76 99 08/28/17 21:03 08/28/17 21:03 08/28/17 21:03 08/28/17 21:03 08/28/17 21:03 General appearance: Present: cachectic, no acute distress, underweight, answers questions appropriately Internal Medicine: Result - Labs CBC & Chem 7: 08/28/17 03:22 08/28/17 03:22 Labs: Short CBC 08/28/17 Range/Units 03:22 WBC 0.8 L* (4.3-11.1) K/mcL Hgb 9.1 L (12.9-16.9) g/dL Hct 28.3 L (37.5-50.1) % Plt Count 358 (140-400) K/mcL Neutrophils # 0.4 L (1.6-8.9) K/mcL BMP 08/28/17 03:22 Sodium 133 L Potassium 4.5 Chloride 110 H Carbon Dioxide 15 L BUN 23 Creatinine 1.30 Glucose 112 H Calcium 9.0 Consult Discharge Plan - Plan Referrals: Jose Ocampo CNP [Primary Care Provider] - (web request sent. If you do not hear from your PCP by Tuesday morning please call and schedule a 5-7 day hospital follow up. Thank you!) Prescriptions: Buspirone HCl [Buspar] 7.5 mg PO BID #60 tablet Potassium Chloride 20 meq PO BID #60 tab.er.prt Thiamine (B-1) [Vitamin B-1] 200 mg PO DAILY #30 tablet
[2017-08-29] MEDS: Ipratropium/Albuterol Neb 3 ML IH SCH ×3 (03:54→15:55)
[2017-08-29] MEDS: *HR* Heparin 5,000 UNIT/ML VIAL SQ SCH (06:04)
[2017-08-29] MEDS: *HR* OxyCODONE Immed Rel 5 MG TABLET PO PRN (10:06)
[2017-08-29] MEDS: amLODIPine 5 MG TABLET PO SCH (10:07)
[2017-08-29] MEDS: Thiamine (B-1) 100 MG TABLET PO SCH (10:07)
[2017-08-29] MEDS: Megestrol Acetate 400 MG/10 ML UDC PO SCH (10:07)
[2017-08-29] MEDS: Doxycycline 100 MG CAPSULE PO SCH (10:07)
[2017-08-29] MEDS: Finasteride 5 MG TABLET PO SCH (10:07)
--- NOTE | 2017-08-29 12:36 | Oncology Inp Progress Note ---
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 He is generally deconditioned and has more recently tolerated his treatment quite poorly. He is slowly increasing his activity and his appetite has improved. His counts as of yesterday have actually improved somewhat above baseline, I do not expect much change within his counts given his dx of AML. He states he is feeling well today and without any acute changes, he is hoping to be discharged home today with his . His wishes to take him home without any assistance from other supportive services. Treatment options to be discussed further on outpatient basis. May consider lengthening cycles or IDH2 inhibition. Will arrange for follow up with Dr. Mares sometime later this week. At this time, oncology will likely otherwise sign off. Qualifiers: Leukemia Active/Remission status: without remission Qualified Code(s): C92.00 - Acute myeloblastic leukemia, not having achieved remission Oncology: Subj Interval history: Mr. Saxena is resting in bed, his is working today and plans to arrive later in the afternoon. He denies pain, nausea, vomiting, diarrhea, fevers or chills. He states that this is the best he has felt since his admission. He is asking to potentially go home today. - Constitutional Vitals: Vital Signs Temp Pulse Resp BP Pulse Ox 08/29/17 11:09 97.9 F 95 20 117/66 98 08/29/17 10:18 18 97 08/29/17 07:29 98.2 F 81 22 119/71 99 08/29/17 04:57 97.7 F 94 19 118/75 100 08/29/17 00:23 98.4 F 96 22 146/80 100 08/28/17 22:16 21 99 08/28/17 21:03 99.5 F 104 17 144/76 99 08/28/17 16:03 98.9 F 87 15 117/75 99 08/28/17 15:49 24 99 Intake and Output 08/28/17 08/29/17 08/29/17 23:59 07:59 15:59 Intake Total 240 / 240 Output Total 125 / 125 100 / 100 350 / 350 Balance -125 / -125 -100 / -100 -110 / -110 Intake: Oral 240 / 240 Output: Urine 125 / 125 100 / 100 350 / 350 Other: Meal Lunch Percent of Meal Consumed 80% # Voids 1 General appearance: cooperative, no acute distress, thin, no febrile Exam: cachectic, chronically ill appearing - Head Head exam: Present: atraumatic - ENT ENT exam: Present: mucous membranes moist - Respiratory Respiratory exam: Present: CTAB. Absent: respiratory distress - Cardiovascular Cardiovascular exam: Present: RRR, +S1, +S2 - GI/Abdominal GI/Abdominal exam: Present: normal bowel sounds, soft. Absent: guarding, rebound, tenderness - Extremities Exam Extremities exam: Present: normal inspection. Absent: calf tenderness - Neurological Exam Neurological exam: Present: alert, oriented X3, no focal deficits, strengths equal and symetr throughout - Psychiatric Psychiatric exam: Present: normal affect, normal mood - Skin Skin exam: Present: dry, intact, normal color, warm Oncology: Obj Data - Labs CBC & Chem 7: 08/28/17 03:22 08/28/17 03:22 Consult Discharge Plan - Plan Referrals: Jose Ocampo CNP [Primary Care Provider] - (web request 08/28/2017)
[2017-08-29 15:40] VITALS: BP 124/72
--- NOTE | 2017-08-29 17:24 | Discharge Summary ---
- NOTES TO OUTPATIENT PROVIDER Notes to Outpatient Provider: Follow-up with oncology. Orders not resulted at time of discharge: Pending orders 08/26/17 12:15 ECG 12 lead ECG [ECG] Stat Date of Encounter: 08/29/17 Time of Encounter: 17:22 - Discharge Diagnosis (1) Neutropenia Priority: Primary Status: Acute Qualifiers: Neutropenia type: other Qualified Code(s): D70.8 - Other neutropenia (2) Anemia Priority: Primary Status: Chronic Qualifiers: Anemia type: other cause Other causes of anemia: antineoplastic chemotherapy Qualified Code(s): D64.81 - Anemia due to antineoplastic chemotherapy; T45.1X5A - Adverse effect of antineoplastic and immunosuppressive drugs, initial encounter (3) Acute myeloid leukemia Priority: Secondary Status: Chronic Qualifiers: Leukemia Active/Remission status: without remission Qualified Code(s): C92.00 - Acute myeloblastic leukemia, not having achieved remission (4) COPD exacerbation Priority: Secondary Status: Resolved (5) Acute hypokalemia Priority: Secondary Status: Resolved (6) HTN (hypertension) Priority: Secondary Status: Acute Qualifiers: Hypertension type: essential hypertension Qualified Code(s): I10 - Essential (primary) hypertension (7) Debility Priority: Secondary Status: Chronic (8) Severe protein-calorie malnutrition Priority: Secondary Status: Acute Hospital course: Mr. Saxena is a 76 year old male. He has had underlying acute myeloid leukemia. He was on chemotherapy in the last several weeks preceding this admission. We admitted him with severe weakness and the very poor appetite. He was recently started on Marinol but it did not help. One can see that this patient is anemic and neutropenic at admission. He was on doxycycline at home. We started him on Levaquin; switched to doxycycline later into this hospitalization. Megace was added to his treatments. The patient got dietary consult. Will labeled him as a patient with severe protein calorie malnutrition. In addition to Marinol and Megace he was getting dietary supplements. He did not qualify for more chemo during this hospitalization. He got somewhat better by the time of discharge. He got his appetite back. Did not have any nausea, vomiting or abdominal pain at the discharge. His last CBC showed hemoglobin of 9.1 with WBC count of 0.8 thousand. Platelet count was 358,000. Electrolytes were normal. Creatinine was 1.30. He is discharged home. Follow-up with oncology next week. See also notes from oncology service. Discharge discussed with: patient, family - Time Spent with Patient Total time spent providing and/or coordinating discharge services: Greater than 30 minutes (40 minutes) - Discharge Medications Prescriptions: Buspirone HCl [Buspar] 7.5 mg PO BID #60 tablet Potassium Chloride 20 meq PO BID #60 tab.er.prt Thiamine (B-1) [Vitamin B-1] 200 mg PO DAILY #30 tablet Home Medications: Finasteride [Proscar] 5 mg PO DAILY 06/27/15 [History] Omeprazole [PriLOSEC] 40 mg PO DAILY 06/27/15 [History] amLODIPine [Norvasc] 5 mg PO DAILY 09/24/16 [History] Ipratropium/Albuterol Neb [Duoneb] 3 ml IH BID PRN 10/19/16 [History] Allopurinol [Zyloprim 300 MG] 300 mg PO DAILY 04/08/17 [History] Atorvastatin Calcium [Lipitor] 80 mg PO DAILY 04/08/17 [History] Terazosin [Hytrin] 1 mg PO HS 04/08/17 [History] Prochlorperazine Maleate [Compazine] 10 mg PO Q8HR PRN #60 tablet 04/25/17 [Rx] Magic Mouthwash [Magic Mouthwash BLM] 10 ml PO QID PRN #240 ml 06/07/17 [Rx] Docusate Sodium [Stool Softener] 100 mg PO DAILY #30 capsule 06/20/17 [Rx] Sennosides [Senokot] 1 tab PO DAILY PRN #30 tablet 06/20/17 [Rx] Polyethylene Glycol 3350 [MiraLAX] 17 gm PO DAILY #3 powd.pack 06/28/17 [Rx] Citalopram Hydrobromide [Celexa] 20 mg PO DAILY #30 tab 07/18/17 [Rx] Megestrol Acetate [Megace] 800 mg PO DAILY #400 udc 07/18/17 [Rx] OxyCODONE Immed Rel [Roxicodone 5 MG] 5 mg PO BID PRN 30 Days #60 tablet [Rx] Zolpidem [Ambien] 10 mg PO HS 30 Days #30 tablet 08/03/17 [Rx] Dronabinol [Marinol] 2.5 mg PO DAILY 30 Days #30 capsule 08/11/17 [Rx] Doxycycline 100 mg PO BID #30 capsule 08/16/17 [Rx] Buspirone HCl [Buspar] 7.5 mg PO BID #60 tablet 08/29/17 [Rx] Potassium Chloride 20 meq PO BID #60 tab.er.prt 08/29/17 [Rx] Thiamine (B-1) [Vitamin B-1] 200 mg PO DAILY #30 tablet 08/29/17 [Rx] Allergies/Adverse Reactions: 3 Allergy/AdvReac Type Severity Reaction Status Date / Time No Known Allergies Allergy Verified 08/11/17 09:29 Date of admission: 08/21/17 04:28 Primary care physician: Jose Ocampo CNP Consults: 08/21/17 04:35 Consult to Physical Therapy [CONS] Routine Comment: Evaluate, develop and implement POC Reason for Consult: Patient has a history of AML, on chemo. Has declined in strength the past few days. Does patient have active BEDREST order?: No Is patient medically & hemodynamically stable?: Yes Patient assessed for mobility or mobilized this visit?: No 08/21/17 04:51 Consult to Nutrition [CONS] Routine Comment: Patient has history of AML, has had no appetite. Consulting Provider: NUTRITION Reason for Dietary Consult: PO Supplementation 08/21/17 09:40 Consult to Oncology Hematology [CONS] Routine Consulting Provider: Aruna Reddy Reason for Consult: oncology Call Completed: Yes 08/24/17 16:47 Consult to [facility] [CONS] Routine Reason for SW Consult: discharge planning-patient wishing to return home Discharging clinician: Adam Woodard Anticipated date of discharge: 08/29/17 - Constitutional Vitals: Temp Pulse Resp BP Pulse Ox 98.6 F 88 18 124/72 98 08/29/17 15:39 08/29/17 15:39 08/29/17 15:56 08/29/17 15:39 08/29/17 15:56 General appearance: Present: cachectic, no acute distress, underweight, answers questions appropriately - Respiratory Respiratory exam: Present: CTAB. Absent: accessory muscle use, rales, rhonchi, wheezes - Cardiovascular Cardiovascular exam: Present: RRR, +S1, +S2. Absent: diastolic murmur, gallop, rubs, systolic murmur - GI/Abdominal GI/Abdominal exam: Present: normal bowel sounds, soft, no peritoneal signs. Absent: distended, tenderness - Patient Status Disposition: Home, Self-Care Condition: Fair Functional capacity at discharge: independent ambulation - Discharge Instructions Follow Up With: Jose Ocampo CNP [Primary Care Provider] - (web request sent. If you do not hear from your PCP by Tuesday please call and schedule a 5-7 day hospital follow up. Thank you!) - Diet and Activity Activity: resume usual activities as tolerated - VTE Deep Vein Thrombosis/Pulmonary Embolism Present on Admission: No
== END 2017-08-29 18:17 | disposition home or self-care (01) | DRG 835 ==
LOC: 2ANU → SUATTDRO 08-21 04:28
PROVIDERS: ADMIT Pediatrics; ATTEND Internal Medicine